=== PATIENT | female | born 1950 | race Caucasian/White ===

== ENCOUNTER 2018-04-05 05:20 | Inpatient (IN) | payer MEDICARE, OTHER ==
[~2018-04-05] VITALS: Ht 165.1 cm; Wt 61.2 kg
[2018-04-05 06:11] LABS: CALC OSMOLALITY 280 mosm/kg (275-300); CALCIUM 9.1 mg/dL (8.5-10.1); CARBON DIOXIDE 29.2 mmol/L (21.0-32.0); CHLORIDE - SERUM 104 mmol/L (98-107); CREATININE - SERUM 0.7 mg/dL (0.6-1.3); GLUCOSE 118 mg/dL (74-106); POTASSIUM - SERUM 3.9 mmol/L (3.5-5.1); SODIUM 141 mmol/L (136-145); UREA NITROGEN 10 mg/dL (7-18); eGFR NON AFRICAN AMERICAN 88 mL/min (90-120)
[2018-04-05 06:15] LABS: BASOPHILS 1.4 % (0-2); EOSINOPHILS 9.7 % (0-7); HEMATOCRIT 42.2 % (36.0-48.0); HEMOGLOBIN 14.1 g/dL (12-16); IMMATURE GRANULOCYTES 0.2 % (0-5); LYMPHOCYTES 32.5 % (15-50); MCH 32.9 pg (26.0-34.0); MCHC 33.4 g/dL (31.0-37.0); MCV 98.6 fL (80.0-100.0); MEAN PLATELET VOLUME 9.2 fL (7.4-10.4); MONOCYTES 8.5 % (2-11); NEUTROPHILS 47.7 % (40-80); PLATELET COUNT 255 10x3/uL (130-400); RBC 4.28 10x6/uL (4.00-5.40); RDW 13.9 % (11.5-14.5); WBC 4.2 10x3/uL (4.8-10.8)
[2018-04-05 06:34] LABS: INR 0.99 (0.85-1.17)
[2018-04-05] MEDS ORDERED: BREO ELLIPTA 21 EACH (06:36)
[2018-04-05] MEDS ORDERED: VENTOLIN HFA18 GM INH (06:36)
[2018-04-05] MEDS ORDERED: PEPCID20 MG PO (06:37)
[2018-04-05 06:45] VITALS: BP 110/63; BMI 22.5
[2018-04-05 16:24] VITALS: BP 110/63; BMI 22.5
[2018-04-05 22:40] VITALS: BP 104/55
[2018-04-06] VITALS (7 sets, daily range): BP systolic 88–124; BP diastolic 51–81; Ht 165.1 cm; Wt 61.2 kg
[2018-04-07 04:00] VITALS: BP 101/63
[2018-04-07 07:44] VITALS: BP 108/54
[2018-04-07 12:20] VITALS: BP 95/53
[2018-04-07 15:43] VITALS: BP 102/57
[2018-04-07 20:00] VITALS: BP 91/56
[2018-04-08] VITALS: BP 94/47
[2018-04-08 04:00] VITALS: BP 117/64
[2018-04-08 06:27] LABS: BASOPHILS 0 % (0-2); EOSINOPHILS 0 % (0-7); HEMATOCRIT 41.1 % (36.0-48.0); HEMOGLOBIN 13.8 g/dL (12-16); IMMATURE GRANULOCYTES 0.2 % (0-5); LYMPHOCYTES 8.2 % (15-50); MCHC 33.6 g/dL (31.0-37.0); MCV 98.3 fL (80.0-100.0); MEAN PLATELET VOLUME 9.1 fL (7.4-10.4); MONOCYTES 0.7 % (2-11); NEUTROPHILS 90.9 % (40-80); PLATELET COUNT 251 10x3/uL (130-400); RBC 4.18 10x6/uL (4.00-5.40); RDW 13.5 % (11.5-14.5); WBC 5.6 10x3/uL (4.8-10.8)
[2018-04-08 06:43] LABS: ALBUMIN 3.5 g/dL (3.4-5.0); ALKALINE PHOSPHATASE 107 U/L (46-116); ALT (SGPT) 25 U/L (10-68); BILIRUBIN - TOTAL 0.18 mg/dL (0.2-1.3); CALC OSMOLALITY 283 mosm/kg (275-300); CALCIUM 8.9 mg/dL (8.5-10.1); CARBON DIOXIDE 30.1 mmol/L (21.0-32.0); CHLORIDE - SERUM 103 mmol/L (98-107); CREATININE - SERUM 0.7 mg/dL (0.6-1.3); GLUCOSE 134 mg/dL (74-106); MAGNESIUM - SERUM 2.3 mg/dL (1.8-2.4); PHOSPHOROUS 5.2 mg/dL (2.5-4.9); POTASSIUM - SERUM 4.7 mmol/L (3.5-5.1); PROTEIN - SERUM 6.8 g/dL (6.4-8.2); SODIUM 142 mmol/L (136-145); UREA NITROGEN 11 mg/dL (7-18); eGFR NON AFRICAN AMERICAN 88 mL/min (90-120)
[2018-04-08 09:35] VITALS: BP 101/53
[2018-04-08 16:07] VITALS: BP 107/50
[2018-04-08 19:40] VITALS: BP 107/62
[2018-04-08 23:21] VITALS: BP 95/45
[2018-04-09 03:57] VITALS: BP 101/42
[2018-04-09 08:23] LABS: IMMUNOGLOBULIN A 124 mg/dL (87-352); IMMUNOGLOBULIN G 751 mg/dL (700-1600)
[2018-04-09] MEDS ORDERED: TESSALON PERLE100 MG PO (12:21)
[2018-04-09] MEDS ORDERED: MUCINEX600 MG PO (12:22)
[2018-04-09] MEDS ORDERED: BREO ELLIPTA 21 EACH (12:22)
[2018-04-09] MEDS ORDERED: OMNICEF300 MG PO (12:24)
[2018-04-09] MEDS ORDERED: SINGULAIR10 MG PO (12:24)
[2018-04-09] MEDS ORDERED: DALIRESP500 MCG PO (12:26)
[2018-04-09] MEDS ORDERED: PREDNISONE20 MG PO (12:32)
[2018-04-09] MEDS ORDERED: OMEPRAZOLE40 MG PO (12:35)
[2018-04-09 12:36] VITALS: BP 108/51
[2018-04-09] MEDS ORDERED: IPRAT-ALBUT 0.5-3 ML UPD ×2 (13:35→13:36)
[2018-04-12 08:24] LABS: IMMUNOGLOBULIN E 23 IU/mL (0-100)
== END 2018-04-09 13:56 | disposition home or self-care (01) | DRG 199 ==
LOC: D.SP 05:20 → D.MS 15:57 → D.SP 15:58 → D.MS 04-09 13:56
PROVIDERS: Internal Medicine Pulmonary Disease; Specialist
PROC: 0W9930Z Drainage of Right Pleural Cavity with Drainage Device, Percutaneous Approach (ICD-10-PCS; 2018-04-05)
PROC: 0BBK3ZX Excision of Right Lung, Percutaneous Approach, Diagnostic (ICD-10-PCS; principal; 2018-04-05 08:00)
DX: J95.811 Postprocedural pneumothorax (principal); J96.01 Acute respiratory failure with hypoxia; J96.02 Acute respiratory failure with hypercapnia; J18.1 Lobar pneumonia, unspecified organism; J44.1 Chronic obstructive pulmonary disease with (acute) exacerbation; J44.0 Chronic obstructive pulmonary disease with (acute) lower respiratory infection; Y83.8 Other surgical procedures as the cause of abnormal reaction of the patient, or of later complication, without mention of misadventure at the time of the procedure; R91.8 Other nonspecific abnormal finding of lung field; J20.9 Acute bronchitis, unspecified; F17.200 Nicotine dependence, unspecified, uncomplicated; K21.9 Gastro-esophageal reflux disease without esophagitis; J30.9 Allergic rhinitis, unspecified

== ENCOUNTER → 2018-05-31 13:31 | Outpatient (CLI) | payer MEDICARE, OTHER ==
[2018-04-06 10:49] VITALS: BMI 22.4
[~2018-05-31 13:31] MED LIST: BREO ELLIPTA 21 EACH; DALIRESP500 MCG PO; IPRAT-ALBUT 0.5-3 ML UPD; MUCINEX600 MG PO; OMEPRAZOLE40 MG PO; OMNICEF300 MG PO; PEPCID20 MG PO; PREDNISONE20 MG PO; SINGULAIR10 MG PO; TESSALON PERLE100 MG PO; VENTOLIN HFA18 GM INH
== END | disposition home or self-care (01) ==
LOC: D.RT 13:31
DX: R91.8 Other nonspecific abnormal finding of lung field (principal)

== ENCOUNTER 2018-06-21 13:41 | Inpatient (IN) | payer MEDICARE, OTHER ==
[~2018-06-21] VITALS: Ht 165.1 cm; Wt 61.2 kg
--- NOTE | ~2018-06-21 | CN ---
PATIENT NAME:MADAI JONES MEDICAL RECORD: [id number] : 50 LOCATION:D.M3 D.1211 ADMIT DATE: 06/22/18 ACCOUNT: [id number] CONSULTING PHYSICIAN: SPEEDY BATEMAN MD REFERRING PHYSICIAN: DEANNA KWOK MD DATE OF CONSULTATION: 06/22/2018 CONSULT REQUESTING PHYSICIAN: Dr. Kwok. REASON FOR CONSULTATION: Acute exacerbation of chronic obstructive pulmonary disease. HISTORY OF PRESENT ILLNESS: Ms. Jones is a 67-year-old female who was complaining of worsening shortness of breath for the last 10 days. She was seen in Dr. Casey's office 2 weeks ago and doing well and she has been scheduled for a CT scan and possible PET scan for followup of pulmonary nodule. According to the patient, she does not have any fever and chill, no night sweats. She has cough without much sputum production. She has shortness of breath with exertion. She hears herself wheezing. Denies any recent cold or flu. REVIEW OF SYSTEMS: HEENT: No sinus congestion. RESPIRATORY: As in history of present illness. CARDIOVASCULAR: No chest pain, no palpitation. GASTROINTESTINAL: No nausea, vomiting. No diarrhea. GENITOURINARY: Negative. Other review of systems is negative. PAST MEDICAL HISTORY: 1. COPD. 2. Mass, right upper lobe. The biopsy was negative. On the present CT scan, it has been resolved. 3. Anxiety, depression. 4. Gastroesophageal reflux disease. 5. Pneumonia 4 months ago. PAST SURGICAL HISTORY: She has surgery on elbow and hand. ALLERGIES: SHE IS ALLERGIC TO CODEINE AND MORPHINE. MEDICATIONS: On Revisu is reviewed. PERSONAL AND SOCIAL HISTORY: The patient is an ex-smoker. She is a nondrinker. FAMILY HISTORY: Significant for cancer. Her parent has cancer. PHYSICAL EXAMINATION: GENERAL: Now, the patient is lying comfortably in bed. She is not in acute distress. VITAL SIGNS: The blood pressure is 141/70, pulse is 90, respiration 20, temperature 98.4, SpO2 is 96% on 2 liters nasal cannula. HEENT: Conjunctivae are pink. Sclerae nonicteric. NECK: The neck is supple. No JVD. LYMPHATIC SYSTEM: There is no cervical lymphadenopathy. CHEST: There is prolonged expiration with wheezing, no crackles. CONSULT REPORT [id number] MADAI JONES HEART: Rhythm regular, normal sound, no murmur. ABDOMEN: The abdomen is soft, bowel sounds present. No hepatosplenomegaly. RECTAL: Deferred. EXTREMITIES: No cyanosis, no clubbing. There is no pedal edema. CENTRAL NERVOUS SYSTEM: The patient is awake and alert. There are no obvious cranial nerve abnormality. The gait was not tested. LABORATORY DATA: The D-dimer is less than 0.27. CBC: The WBC is 3.7, hemoglobin 13.9, hematocrit is 41.2, the platelet count is 265. Chemistry: Sodium is 138, potassium is 3.9, BUN is 11, creatinine 0.7. Liver enzymes within normal range. IMPRESSION: 1. Acute hypoxic respiratory failure, would be less likely pulmonary thromboembolism with negative D-dimer. 2. Acute exacerbation of chronic obstructive pulmonary disease. 3. Pulmonary nodule, left lower lobe, 7 mm. Comparing to the CT scan of the chest in February 2018, the nodule has unchanged in size. 4. Tracheobronchitis. 5. Anxiety. 6. Ex-smoker. 7. Leukopenia, the etiology is not clear. RECOMMENDATION: 1. Continue albuterol, ipratropium nebulizer. 2. Brovana, budesonide nebulizer. 3. Daliresp 250 mcg daily, Singulair 10 mg daily, Mucinex and Tessalon Perles. 4. Consult Dr. Lott. 5. Xanax for anxiety. 6. Followup chest radiograph and labs in the morning. Consult Dr. Lott. Dr. Kwok, thank you for involving me in the care of Ms. Jones. TRANSINT:[id number] Voice Confirmation ID: [id number] DOCUMENT ID: [id number] SPEEDY BATEMAN MD at 1301 CC: [id number] DICTATION DATE: 06/22/18 1452 TURPENTINE DISTILLER: 06/22/18 1620 ADM IN [facility] [id number] [place] [address]
[2018-06-21 15:38] LABS: BASOPHILS 0.8 % (0-2); EOSINOPHILS 6.7 % (0-7); HEMATOCRIT 41.2 % (36.0-48.0); HEMOGLOBIN 13.9 g/dL (12-16); IMMATURE GRANULOCYTES 0.3 % (0-5); LYMPHOCYTES 31.6 % (15-50); MCH 33.8 pg (26.0-34.0); MCHC 33.7 g/dL (31.0-37.0); MCV 100.2 fL (80.0-100.0); MONOCYTES 9.1 % (2-11); NEUTROPHILS 51.5 % (40-80); PLATELET COUNT 265 10x3/uL (130-400); RBC 4.11 10x6/uL (4.00-5.40); RDW 13.4 % (11.5-14.5); WBC 3.7 10x3/uL (4.8-10.8)
[2018-06-21 15:54] LABS: ALBUMIN 3.7 g/dL (3.4-5.0); ALKALINE PHOSPHATASE 89 U/L (46-116); ALT (SGPT) 19 U/L (10-68); BILIRUBIN - TOTAL 0.28 mg/dL (0.2-1.3); CALC OSMOLALITY 275 mosm/kg (275-300); CHLORIDE - SERUM 105 mmol/L (98-107); CREATININE - SERUM 0.7 mg/dL (0.6-1.3); GLUCOSE 87 mg/dL (74-106); POTASSIUM - SERUM 4.1 mmol/L (3.5-5.1); PROTEIN - SERUM 6.9 g/dL (6.4-8.2); SODIUM 140 mmol/L (136-145); UREA NITROGEN 8 mg/dL (7-18); eGFR NON AFRICAN AMERICAN 88 mL/min (90-120)
[2018-06-21 16:07] LABS: CKMB 1.5 U/L (0.0-3.6); CREATINE KINASE 55 UL (21-215); PRO BNP 38 pg/mL (0-125)
[2018-06-21 16:08] LABS: TROPONIN-I < 0.017 ng/mL (0.000-0.060)
[2018-06-21 21:42] VITALS: BP 97/60
[2018-06-21 23:23] VITALS: BP 115/62; BMI 22.5
[2018-06-22] VITALS: BP 115/62
[2018-06-22 04:25] VITALS: BP 98/58
[2018-06-22 04:29] LABS: BASOPHILS 0 % (0-2); EOSINOPHILS 0 % (0-7); HEMOGLOBIN 13.6 g/dL (12-16); LYMPHOCYTES 10.7 % (15-50); MCH 34.5 pg (26.0-34.0); MCHC 34.9 g/dL (31.0-37.0); MEAN PLATELET VOLUME 9.1 fL (7.4-10.4); MONOCYTES 1.4 % (2-11); NEUTROPHILS 87.9 % (40-80); PLATELET COUNT 265 10x3/uL (130-400); RBC 3.94 10x6/uL (4.00-5.40); RDW 13.2 % (11.5-14.5); WBC 2.8 10x3/uL (4.8-10.8)
[2018-06-22 04:40] LABS: CALCIUM 8.5 mg/dL (8.5-10.1); CARBON DIOXIDE 27.5 mmol/L (21.0-32.0); CHLORIDE - SERUM 105 mmol/L (98-107); CREATININE - SERUM 0.7 mg/dL (0.6-1.3); POTASSIUM - SERUM 3.9 mmol/L (3.5-5.1); SODIUM 138 mmol/L (136-145); eGFR NON AFRICAN AMERICAN 88 mL/min (90-120)
[2018-06-22 05:03] LABS: CALC OSMOLALITY 278 mosm/kg (275-300); GLUCOSE 162 mg/dL (74-106); UREA NITROGEN 11 mg/dL (7-18)
[2018-06-22 07:17] VITALS: BP 141/70
[2018-06-22 09:36] VITALS: BMI 22.4
[2018-06-22 11:01] VITALS: BP 112/64
[2018-06-22 15:00] VITALS: BP 137/69
[2018-06-22 16:54] VITALS: Ht 165.1 cm; Wt 61.2 kg
[2018-06-22 19:26] VITALS: BP 109/60
[2018-06-23 05:20] LABS: ALBUMIN 3.2 g/dL (3.4-5.0); ALKALINE PHOSPHATASE 79 U/L (46-116); ALT (SGPT) 22 U/L (10-68); BILIRUBIN - TOTAL 0.07 mg/dL (0.2-1.3); CALC OSMOLALITY 275 mosm/kg (275-300); CALCIUM 8.4 mg/dL (8.5-10.1); CARBON DIOXIDE 28.1 mmol/L (21.0-32.0); CHLORIDE - SERUM 106 mmol/L (98-107); CREATININE - SERUM 0.7 mg/dL (0.6-1.3); GLUCOSE 147 mg/dL (74-106); POTASSIUM - SERUM 4.1 mmol/L (3.5-5.1); PROTEIN - SERUM 6.3 g/dL (6.4-8.2); SODIUM 137 mmol/L (136-145); UREA NITROGEN 11 mg/dL (7-18); eGFR NON AFRICAN AMERICAN 88 mL/min (90-120)
[2018-06-23 05:40] LABS: BASOPHILS 0 % (0-2); EOSINOPHILS 0 % (0-7); HEMATOCRIT 38.3 % (36.0-48.0); HEMOGLOBIN 12.6 g/dL (12-16); IMMATURE GRANULOCYTES 0.2 % (0-5); LYMPHOCYTES 4.6 % (15-50); MCH 32.9 pg (26.0-34.0); MCHC 32.9 g/dL (31.0-37.0); MONOCYTES 1.6 % (2-11); NEUTROPHILS 93.6 % (40-80); PLATELET COUNT 260 10x3/uL (130-400); RBC 3.83 10x6/uL (4.00-5.40); RDW 13.7 % (11.5-14.5); WBC 9.5 10x3/uL (4.8-10.8)
[2018-06-23 06:40] VITALS: BP 105/67
[2018-06-23 08:19] VITALS: BP 98/52
[2018-06-23 11:52] VITALS: BP 110/61
[2018-06-23] MEDS ORDERED: BROVANA15 MCG/2 M INH (12:16)
[2018-06-23] MEDS ORDERED: LEVAQUIN750 MG PO (12:17)
[2018-06-23] MEDS ORDERED: STERAPRED DS 1010 MG PO (12:18)
[2018-06-24 14:23] LABS: ANA REFLEX - DIRECT Negative (Negative)
== END 2018-06-23 14:20 | disposition home or self-care (01) | DRG 189 ==
LOC: D.ER 13:41 → D.M3 21:42 → OBSVTIME 21:42 → D.M3 06-22 17:09
PROVIDERS: Family Medicine; Internal Medicine Hematology & Oncology
DX: J96.01 Acute respiratory failure with hypoxia (principal); J44.1 Chronic obstructive pulmonary disease with (acute) exacerbation; J40 Bronchitis, not specified as acute or chronic; D72.819 Decreased white blood cell count, unspecified; R91.1 Solitary pulmonary nodule; K21.9 Gastro-esophageal reflux disease without esophagitis; F32.9 Major depressive disorder, single episode, unspecified; F41.9 Anxiety disorder, unspecified

== ENCOUNTER 2018-09-22 12:11 | Inpatient (IN) | payer MEDICARE, OTHER ==
[~2018-09-22] VITALS: Ht 165.1 cm; Wt 61.2 kg
[~2018-09-22 12:11] MED LIST changes: +BROVANA15 MCG/2 M INH; +LEVAQUIN750 MG PO; +STERAPRED DS 1010 MG PO
[2018-09-22 13:52] LABS: BASOPHILS 0.7 % (0-2); EOSINOPHILS 2.7 % (0-7); HEMATOCRIT 42.4 % (36.0-48.0); HEMOGLOBIN 14.2 g/dL (12-16); IMMATURE GRANULOCYTES 0.2 % (0-5); LYMPHOCYTES 22.6 % (15-50); MCH 33.6 pg (26.0-34.0); MCHC 33.5 g/dL (31.0-37.0); MCV 100.5 fL (80.0-100.0); MEAN PLATELET VOLUME 9.1 fL (7.4-10.4); MONOCYTES 6.1 % (2-11); NEUTROPHILS 67.7 % (40-80); PLATELET COUNT 286 10x3/uL (130-400); RBC 4.22 10x6/uL (4.00-5.40); RDW 13.6 % (11.5-14.5); WBC 5.9 10x3/uL (4.8-10.8)
[2018-09-22 13:54] LABS: ALBUMIN 3.9 g/dL (3.4-5.0); ALKALINE PHOSPHATASE 79 U/L (46-116); ALT (SGPT) 24 U/L (10-68); BILIRUBIN - TOTAL 0.44 mg/dL (0.2-1.3); CALC OSMOLALITY 277 mosm/kg (275-300); CALCIUM 9.3 mg/dL (8.5-10.1); CHLORIDE - SERUM 103 mmol/L (98-107); CREATININE - SERUM 0.7 mg/dL (0.6-1.3); GLUCOSE 94 mg/dL (74-106); PROTEIN - SERUM 7.4 g/dL (6.4-8.2); SODIUM 140 mmol/L (136-145); UREA NITROGEN 11 mg/dL (7-18); eGFR NON AFRICAN AMERICAN 88 mL/min (90-120)
[2018-09-22 13:55] LABS: APTT 23.9 SECONDS (22.8-39.4); INR 0.92 (0.85-1.17); PROTIME 11.9 SECONDS (11.6-15.0)
[2018-09-22 14:10] LABS: CKMB 2.1 U/L (0.0-3.6); CREATINE KINASE 47 UL (21-215); PRO BNP 74 pg/mL (0-125); TROPONIN-I < 0.017 ng/mL (0.000-0.060)
--- NOTE | 2018-09-22 16:17 | NUR ---
[facility] [id number]
--- NOTE | 2018-09-22 19:14 | MORECARE ---
CASE MANAGEMENT DISCHARGE SUMMARY PATIENT: MADAI WARD UNIT: [id number] ADM DATE: 09/22/18 AGE: 67 : 50 SEX: F ROOM/BED: D.[facility] AUTHOR: CHENCHO BURDICK PHYSICIAN: REFERRING PHYSICIAN: SHAYE CONTRERAS MD DATE OF SERVICE: 09/22/18 Discharge Plan Patient Name: MADAI WARD Facility: [facility]:[place] : 1950 Planned Disposition: Anticipated Discharge Date: Discharge Date: Expected LOS: Initial Reviewer: [email or web address] Initial Review Date: 09/22/2018 Generated: 09/22/18 8:14 pm Patient Name: MADAI WARD Page [id number] at 1914 All edits/amendments must be made on the electronic document DICTATION DATE: 09/22/181913 UPSETTER SETTER UP: EVA 09/22/181913 RPT#: [id number] DC DATE: STATUS: ADM IN [facility] [address] [place] [address] END OF REPORT
[2018-09-22 20:15] VITALS: BP 112/47
--- NOTE | 2018-09-22 20:29 | NUR ---
PT ARRIVED TO ROOM 1203 PHARMACY AND MED REC DONE. ADMIT HISTORY COMPLETE. PT ON 2L O2 NC. AAO UP AD TODD. 75ML/HR TO LEFT AC IV. GLASSES AND OTHER BELONGING AT BEDSIDE. PT HAS NO S/S OF DISTRESS. DENIES ANY NEEDS. WILL CPOC
--- NOTE | 2018-09-23 02:20 | NUR ---
NO TELEMETRY AVALIBLE. RADIO MACHINIST INSTRUCTED TO CALL WHEN ONE IS AVALIBLE.
[2018-09-23 03:03] VITALS: BP 112/47; BMI 22.5
--- NOTE | 2018-09-23 04:11 | NUR ---
PT ASLEEP. RESP EVEN AND UNLABORED. BEDLOW AND CALL LIGHT IN REACH. NO S/S OF DISTRESS. WILL CPOC
[2018-09-23 04:16] VITALS: BP 119/81
--- NOTE | 2018-09-23 07:45 | NUR ---
AM ROUNDS COMPLETED. INTRODUCED MYSELF TO PT PRIMARY RN FOR TODAYS SHIFT. PT IS A&O SITTING UP IN BED RESTING QUIETLY. SHIFT ASSESSMENT COMPLETED AND PTS LUNGS ARE CTA NO WHEEZING NOTED COMPARED TO LAST NIGHTS ASSESSMENT. PT HAS A CONSULT THAT WASNT DONE LAST NIGHT SO I DID SEND A PAGE FOR ORDERED. PT IS HOPING TO GO HOME AND STATES SHE IS FEELING BETTER AND ALREADY HAS A F/U WITH IN PLACE. RR NONLABORED WITH NC @2L IN PLACE. CL IN REACH, BED IN LOWEST, SIDE RAILS X2. NO CURRENT NEEDS. WILL CTM.
[2018-09-23 08:34] LABS: BASOPHILS 0 % (0-2); EOSINOPHILS 0 % (0-7); HEMATOCRIT 39.1 % (36.0-48.0); HEMOGLOBIN 12.9 g/dL (12-16); IMMATURE GRANULOCYTES 0.1 % (0-5); LYMPHOCYTES 5.4 % (15-50); MCH 33.1 pg (26.0-34.0); MCV 100.3 fL (80.0-100.0); MEAN PLATELET VOLUME 9.2 fL (7.4-10.4); MONOCYTES 0.9 % (2-11); NEUTROPHILS 93.6 % (40-80); PLATELET COUNT 286 10x3/uL (130-400); RDW 13.6 % (11.5-14.5)
[2018-09-23 08:42] LABS: WBC 8.7 10x3/uL (4.8-10.8)
[2018-09-23 09:05] LABS: ALBUMIN 3.2 g/dL (3.4-5.0); ALKALINE PHOSPHATASE 65 U/L (46-116); ALT (SGPT) 18 U/L (10-68); BILIRUBIN - TOTAL 0.22 mg/dL (0.2-1.3); CALCIUM 8.9 mg/dL (8.5-10.1); CARBON DIOXIDE 25.9 mmol/L (21.0-32.0); CHLORIDE - SERUM 105 mmol/L (98-107); CREATININE - SERUM 0.8 mg/dL (0.6-1.3); POTASSIUM - SERUM 4.2 mmol/L (3.5-5.1); PROTEIN - SERUM 6.4 g/dL (6.4-8.2); SODIUM 142 mmol/L (136-145); eGFR NON AFRICAN AMERICAN 76 mL/min (90-120)
[2018-09-23 09:07] LABS: CALC OSMOLALITY 287 mosm/kg (275-300); GLUCOSE 165 mg/dL (74-106); UREA NITROGEN 14 mg/dL (7-18)
[2018-09-23 09:09] VITALS: BP 134/66
--- NOTE | 2018-09-23 11:18 | NUR ---
WAITING ON SOLU-MEDROL. PAGED PHARMACY AND THEY STATE THEY WILL BRING UP. PT RESTING QUIETLY AND STTATES SHE IS BREATHING GOOD. DENIES ANY CURRENT PAIN OR NEEDS. CL IN REACH. WILL CTM.
[2018-09-23 12:24] VITALS: BMI 22.4
[2018-09-23 14:21] VITALS: BP 108/61
[2018-09-23 16:45] VITALS: BP 102/53
[2018-09-23 17:07] VITALS: Ht 165.1 cm; Wt 61.2 kg
--- NOTE | 2018-09-23 19:05 | NUR ---
PT RESTING IN BED. PT DENIES ANY NEEDS. NAME AND DATE PLACED ON BOARD., WILL CPOC
[2018-09-23 20:19] LABS: % SATURATION 24 % (15-55); IRON 51 ug/dl (35-150); TOTAL IRON BIND CAPACITY 210 ug/dl (260-445); UNSAT IRON BIND CAPACITY 159 ug/dl (150-375)
--- NOTE | 2018-09-23 20:45 | NUR ---
PT RESTING IN BED. NEW IV PLACED IN RIGHT WRIST 20G PIV, REMOVED LEFT AC IV INDURATION AND INFLATRATION. PT WILL CALL FOR ASSIST WHEN NEEDED. WILL CPOC
--- NOTE | 2018-09-24 00:42 | NUR ---
UNABLE TO PUT PT ON TELEMETRY. NO TELEMETRY AVALIBLE. PIPELINES SUPERINTENDENT VERBALIZED THAT ONCE ONE IS AVALIBLE SHE WILL LET NURSE KNOW.
--- NOTE | 2018-09-24 00:46 | NUR ---
PT REFUSED TO BE HOOKED TO FLUIDS. STATES SHE DOESNT NEED IT SHE IS HERE FOR RESP REASONS AND DRINKS FINE.
--- NOTE | 2018-09-24 03:38 | NUR ---
PT ASKING TO GET INTO A SHOWER. ASSISTED SHOWER BY WRAPPING IV, PT SHOWERED SELF. PT WALKING HALLWAY WALKED TO NURSE STATION FOR COFFEE. NO S/S OF DISTRESS. DENIES ANY NEEDS. WILL CPOC
[2018-09-24 05:28] VITALS: BP 102/60
--- NOTE | 2018-09-24 06:22 | NUR ---
PATIENT UP IN BED, MORNING MEDS GIVEN W/O DIFFICULTY. IV STILL PATENT, NO REDNESS OR INFILTRATION. PATIENT PLEASANT AND IN GOOD SPIRITS.
[2018-09-24 08:05] VITALS: BP 104/57
--- NOTE | 2018-09-24 08:51 | NUR ---
PT ALERT X 4. BREATH SOUNDS CLEAR BILAT, 2L O2 PER NC. IV TO RIGHT WRIST, SALINE LOCKED. ASKING ABOUT GI CONSULT, SPOKE WITH GIO JULIEN ABOUT THIS. BREAKFAST IN ROOM. BED LOW, CALL LIGHT IN REACH, NO OTHER NEEDS AT THIS TIME.
[2018-09-24 11:32] VITALS: BP 146/98
[2018-09-24 15:43] VITALS: BP 102/55
--- NOTE | 2018-09-24 19:50 | NUR ---
PATIENT RESTING IN BED AND DENIES NEEDS AT THIS TIME. BED IN LOWEST POSITION AND CALL LIGHT WITHIN REACH. ENCOURAGED THE PATIENT TO CALL IF SHE HAS NEEDS.
[2018-09-24 20:00] VITALS: BP 101/57
--- NOTE | 2018-09-24 22:41 | NUR ---
COVERED PATIENT'S IV AND GAVE HER A CLEAN GOWN TO TAKE A SHOWER. PATIENT DENIES OTHER NEEDS AT THIS TIME.
--- NOTE | 2018-09-24 23:20 | NUR ---
PATIENT RESTING IN BED WITH NO S/S OF DISTRESS AND DENIES NEEDS AT THIS TIME. BED IN LOWEST POSITION AND CALL LIGHT WITHIN REACH. ENCOURAGED THE PATIENT TO CALL IF SHE HAS NEEDS.
[2018-09-24 23:42] VITALS: BP 104/64
[2018-09-25 04:00] VITALS: BP 110/56
[2018-09-25 07:34] LABS: BASOPHILS 0 % (0-2); EOSINOPHILS 0 % (0-7); HEMATOCRIT 36.8 % (36.0-48.0); HEMOGLOBIN 12.1 g/dL (12-16); IMMATURE GRANULOCYTES 0.3 % (0-5); MCH 33.2 pg (26.0-34.0); MCHC 32.9 g/dL (31.0-37.0); MCV 101.1 fL (80.0-100.0); MEAN PLATELET VOLUME 8.9 fL (7.4-10.4); MONOCYTES 3.2 % (2-11); NEUTROPHILS 92.5 % (40-80); PLATELET COUNT 259 10x3/uL (130-400); RBC 3.64 10x6/uL (4.00-5.40); RDW 14.1 % (11.5-14.5)
[2018-09-25 07:37] LABS: WBC 16.4 10x3/uL (4.8-10.8)
[2018-09-25 07:47] LABS: PROTIME 12.7 SECONDS (11.6-15.0)
[2018-09-25 08:27] LABS: CALC OSMOLALITY 281 mosm/kg (275-300); CALCIUM 8.4 mg/dL (8.5-10.1); CARBON DIOXIDE 24.4 mmol/L (21.0-32.0); CHLORIDE - SERUM 105 mmol/L (98-107); CREATININE - SERUM 0.7 mg/dL (0.6-1.3); GLUCOSE 126 mg/dL (74-106); POTASSIUM - SERUM 4.2 mmol/L (3.5-5.1); SODIUM 140 mmol/L (136-145); UREA NITROGEN 14 mg/dL (7-18); eGFR NON AFRICAN AMERICAN 88 mL/min (90-120)
[2018-09-25] MEDS ORDERED: ZITHROMAX500 MG PO (14:03)
[2018-09-25] MEDS ORDERED: BENZONATATE200 MG PO (14:04)
[2018-09-25] MEDS ORDERED: SINGULAIR10 MG PO (14:04)
[2018-09-25] MEDS ORDERED: OMNICEF300 MG PO (14:04)
[2018-09-25] MEDS ORDERED: DALIRESP500 MCG PO (14:05)
[2018-09-25] MEDS ORDERED: PREDNISONE10 MG PO (14:06)
--- NOTE | 2018-09-25 15:30 | NUR ---
IV TO LEFT HAND DC'D, TIP INTACT. DISCHARGE PAPERWORK SIGNED, ALL QUESTIONS ANSWERED.
[2018-09-26 11:14] LABS: FOLATE (FOLIC ACID) - SERUM 6.7 ng/mL (>3.0)
== END 2018-09-25 15:57 | disposition home or self-care (01) | DRG 189 ==
LOC: D.ER 12:11 → D.EDHOLD 17:31 → D.M3 17:31
PROVIDERS: Family Medicine; Internal Medicine Gastroenterology; ADMIT Internal Medicine Nephrology
PROC: 0DB68ZX Excision of Stomach, Via Natural or Artificial Opening Endoscopic, Diagnostic (ICD-10-PCS; 2018-09-25)
PROC: 0DB58ZX Excision of Esophagus, Via Natural or Artificial Opening Endoscopic, Diagnostic (ICD-10-PCS; 2018-09-25)
PROC: 0D758ZZ Dilation of Esophagus, Via Natural or Artificial Opening Endoscopic (ICD-10-PCS; 2018-09-25)
PROC: 0DB98ZX Excision of Duodenum, Via Natural or Artificial Opening Endoscopic, Diagnostic (ICD-10-PCS; principal; 2018-09-25 07:57)
DX: J96.21 Acute and chronic respiratory failure with hypoxia (principal); K29.01 Acute gastritis with bleeding; J44.1 Chronic obstructive pulmonary disease with (acute) exacerbation; J44.0 Chronic obstructive pulmonary disease with (acute) lower respiratory infection; K21.9 Gastro-esophageal reflux disease without esophagitis; M41.9 Scoliosis, unspecified; K22.2 Esophageal obstruction; J20.9 Acute bronchitis, unspecified; J30.9 Allergic rhinitis, unspecified; D75.89 Other specified diseases of blood and blood-forming organs; R91.1 Solitary pulmonary nodule; K44.9 Diaphragmatic hernia without obstruction or gangrene; K20.9 Esophagitis, unspecified; K29.80 Duodenitis without bleeding; Z87.891 Personal history of nicotine dependence

== ENCOUNTER 2019-02-20 12:59 | Inpatient (IN) | payer MEDICARE, OTHER ==
[~2019-02-20 12:59] MED LIST changes: +BENZONATATE200 MG PO; +PREDNISONE10 MG PO; +ZITHROMAX500 MG PO
[2019-02-20] MEDS ORDERED: [UNRECOGNIZED DRUG - OTHER] (13:12)
[2019-02-20 13:53] LABS: BASOPHILS 0.9 % (0-2); EOSINOPHILS 7.3 % (0-7); HEMATOCRIT 39.6 % (36.0-48.0); HEMOGLOBIN 13.3 g/dL (12-16); LYMPHOCYTES 34.4 % (15-50); MCH 33.3 pg (26.0-34.0); MCHC 33.6 g/dL (31.0-37.0); MCV 99.2 fL (80.0-100.0); MEAN PLATELET VOLUME 8.5 fL (7.4-10.4); NEUTROPHILS 49.4 % (40-80); PLATELET COUNT 243 10x3/uL (130-400); RBC 3.99 10x6/uL (4.00-5.40); RDW 13.7 % (11.5-14.5); WBC 4.4 10x3/uL (4.8-10.8)
[2019-02-20 14:01] LABS: INR 0.99 (0.85-1.17); PROTIME 12.6 SECONDS (11.6-15.0)
[2019-02-20 14:03] LABS: ALBUMIN 3.7 g/dL (3.4-5.0); ALKALINE PHOSPHATASE 80 U/L (46-116); ALT (SGPT) 19 U/L (10-68); BILIRUBIN - TOTAL 0.36 mg/dL (0.2-1.3); CALC OSMOLALITY 278 mosm/kg (275-300); CALCIUM 8.6 mg/dL (8.5-10.1); CARBON DIOXIDE 28.7 mmol/L (21.0-32.0); CHLORIDE - SERUM 105 mmol/L (98-107); CREATININE - SERUM 0.6 mg/dL (0.6-1.3); GLUCOSE 82 mg/dL (74-106); PROTEIN - SERUM 6.9 g/dL (6.4-8.2); SODIUM 141 mmol/L (136-145); UREA NITROGEN 11 mg/dL (7-18); eGFR NON AFRICAN AMERICAN > 90 mL/min (90-120)
[2019-02-20 14:15] LABS: CKMB 1.3 U/L (0.0-3.6); CREATINE KINASE 40 UL (21-215); PRO BNP 18 pg/mL (0-125); TROPONIN-I < 0.017 ng/mL (0.000-0.060)
[2019-02-20 18:09] VITALS: BP 115/69; BMI 22.5
--- NOTE | 2019-02-20 18:16 | NUR ---
ASSESSMENT PER FLOW SHEET. PT IS HAVING SOME SHORTNESS OF BREATH WITH SATS 89-90% ON ROOM AIR. PT PLACED ON 2 LITERS PER NASAL CANULA,SATS 94-95%.ORIENTATION TO ROOM.CALL LIGHT IN REACH.
[2019-02-20 21:04] VITALS: BP 110/51
--- NOTE | 2019-02-20 23:01 | NUR ---
I have reviewed this patient and I concur with the Shift Assessment completed by the Licensed Practical Nurse today this shift.
[2019-02-21] VITALS: BP 105/66
[2019-02-21 04:30] VITALS: BP 103/63
[2019-02-21 07:00] VITALS: BP 101/60
--- NOTE | 2019-02-21 08:01 | NUR ---
LYING IN BED,WITHOUT DISTRESS.CALL LIGHT IN REACH
[2019-02-21 11:00] VITALS: BP 106/62
[2019-02-21 11:14] LABS: BASOPHILS 0 % (0-2); EOSINOPHILS 0 % (0-7); HEMATOCRIT 37.2 % (36.0-48.0); HEMOGLOBIN 12.4 g/dL (12-16); IMMATURE GRANULOCYTES 0.2 % (0-5); LYMPHOCYTES 4.7 % (15-50); MCH 32.9 pg (26.0-34.0); MCHC 33.3 g/dL (31.0-37.0); MCV 98.7 fL (80.0-100.0); MEAN PLATELET VOLUME 8.9 fL (7.4-10.4); MONOCYTES 2.6 % (2-11); NEUTROPHILS 92.5 % (40-80); PLATELET COUNT 246 10x3/uL (130-400); RBC 3.77 10x6/uL (4.00-5.40); RDW 13.6 % (11.5-14.5)
[2019-02-21 11:19] LABS: WBC 9.2 10x3/uL (4.8-10.8)
[2019-02-21 11:32] LABS: CALCIUM 8.8 mg/dL (8.5-10.1); CARBON DIOXIDE 26.9 mmol/L (21.0-32.0); CHLORIDE - SERUM 105 mmol/L (98-107); CREATININE - SERUM 0.7 mg/dL (0.6-1.3); POTASSIUM - SERUM 3.7 mmol/L (3.5-5.1); SODIUM 140 mmol/L (136-145); eGFR NON AFRICAN AMERICAN 88 mL/min (90-120)
[2019-02-21 11:34] LABS: CALC OSMOLALITY 284 mosm/kg (275-300); GLUCOSE 191 mg/dL (74-106); UREA NITROGEN 16 mg/dL (7-18)
--- NOTE | 2019-02-21 16:20 | MORECARE ---
CASE MANAGEMENT DISCHARGE SUMMARY PATIENT: MADAI WARD UNIT: [id number] ADM DATE: 02/20/19 AGE: 68 : 50 SEX: F ROOM/BED: D.2220 AUTHOR: GENNARODOC PHYSICIAN: REFERRING PHYSICIAN: SHAYE CONTRERAS MD DATE OF SERVICE: 02/21/19 Discharge Plan Patient Name: MADAI WARD Facility: [facility]:[place] : 1950 Planned Disposition: Home or Self Care Anticipated Discharge Date: Discharge Date: Expected LOS: Initial Reviewer: [email or web address] Initial Review Date: 02/20/2019 Generated: 02/21/19 5:20 pm Comments DCP- Discharge Planning Updated by [email or web address]: Francesca Brito on 02/21/19 3:[address] Patient Name: MADAI WARD Admission Status: ER Accout number: [id number] Admission Date: 02-20-2019 : 1950 Admission Diagnosis: Attending: SHAYE CONTRERAS Current LOS: 1 Anticipated DC Date: Planned Disposition: Home or Self Care Primary Insurance: MEDICARE A & B Discharge Planning Comments: CM met with patient to complete initial dc planning assessment. CM educated patient on the CM role and verbal consent given by patient to complete assessment. Patient lives at home where she is independent with her care. She lives alone . At discharge patient plans to return home and feels this is a safe discharge. Her brother will be her dinkey driver home. CM discussed availability of home health, rehab services, and medical equipment. She does not want home health. She has home O2 and a nebulizer from [facility] and would like to see if she could have a portable Nebulizer and O2. Will get walk test closer to DC. JOSE ALBERTO signed ad placed in chart. Patient denied known discharge needs at this time. CM will continue to follow and will assist as needed with dc plans/needs. Dining Manager: Francesca Brito DCPIA - Discharge Planning Initial Assessment Updated by [email or web address]: Francesca Brito on 02/21/19 4:17 pm * Is the patient Alert and Oriented? Yes * How many steps to enter\exit or inside your home? * PCP [facility] ([place]) * Pharmacy [facility] * Preadmission Environment Home Alone * ADLs Independent * Equipment Bedside Commode Nebulizer Oxygen * List name and contact numbers for known caregivers / representatives who currently or will assist patient after discharge: Alonso [phone] * Verbal permission to speak to the caregivers and representatives has been obtained from the patient. N/A * Community resources currently utilized None * Additional services required to return to the preadmission environment? No * Can the patient safely return to the preadmission environment? Yes * Has this patient been hospitalized within the prior 30 days at any hospital? No Patient Name: MADAI WARD Page [id number] at 1620 All edits/amendments must be made on the electronic document DICTATION DATE: 02/21/191618 LOOM SETTER FOURDRINIER: EVA 02/21/191618 RPT#: [id number] DC DATE: STATUS: ADM IN [facility] [address] [place] [address] END OF REPORT
[2019-02-21 17:11] VITALS: BP 99/57
[2019-02-21 21:28] VITALS: BP 109/60
[2019-02-22 02:13] VITALS: BP 105/64
--- NOTE | 2019-02-22 04:14 | NUR ---
I have reviewed this patient and I concur with the Shift Assessment completed by the Licensed Practical Nurse today this shift.
[2019-02-22 04:50] VITALS: BP 100/51
[2019-02-22 06:42] LABS: BASOPHILS 0 % (0-2); EOSINOPHILS 0 % (0-7); HEMATOCRIT 37.1 % (36.0-48.0); HEMOGLOBIN 12.3 g/dL (12-16); IMMATURE GRANULOCYTES 0.3 % (0-5); LYMPHOCYTES 3.1 % (15-50); MCH 33.2 pg (26.0-34.0); MCHC 33.2 g/dL (31.0-37.0); MEAN PLATELET VOLUME 9.1 fL (7.4-10.4); NEUTROPHILS 94.6 % (40-80); PLATELET COUNT 258 10x3/uL (130-400); RBC 3.71 10x6/uL (4.00-5.40)
[2019-02-22 06:57] LABS: CALC OSMOLALITY 282 mosm/kg (275-300); CALCIUM 8.8 mg/dL (8.5-10.1); CARBON DIOXIDE 25.4 mmol/L (21.0-32.0); CHLORIDE - SERUM 106 mmol/L (98-107); CREATININE - SERUM 0.6 mg/dL (0.6-1.3); MAGNESIUM - SERUM 2.3 mg/dL (1.8-2.4); POTASSIUM - SERUM 3.9 mmol/L (3.5-5.1); SODIUM 141 mmol/L (136-145); UREA NITROGEN 16 mg/dL (7-18); eGFR NON AFRICAN AMERICAN > 90 mL/min (90-120)
[2019-02-22 07:00] LABS: GLUCOSE 124 mg/dL (74-106)
[2019-02-22 07:11] LABS: WBC 14.6 10x3/uL (4.8-10.8)
--- NOTE | 2019-02-22 07:30 | NUR ---
PT SITTING UP ON SOB, NO ACUTE DISTRESS NOTED AT THIS TIME. PT DOES VOICE DYSPNEA UPON ACTIVITY. SALINE LOC TO LEFT HAND INTACT AND PATENT, SITE WITHOUT REDNESS OR EDEMA. DENIES PAIN AT THIS TIME. CL WITHIN REACH. ENCOURAGED TO CALL WITH NEEDS. CONTINUE POC
[2019-02-22 08:54] VITALS: BP 103/63
[2019-02-22 12:43] VITALS: BP 111/42
[2019-02-22] MEDS ORDERED: LEVOFLOXACIN500 MG PO (16:16)
[2019-02-22] MEDS ORDERED: PREDNISONE10 MG PO (16:17)
[2019-02-22 17:05] VITALS: BP 106/59
--- NOTE | 2019-03-01 12:37 | MORECARE ---
CASE MANAGEMENT DISCHARGE SUMMARY PATIENT: MADAI WARD UNIT: [id number] ADM DATE: 02/20/19 AGE: 68 : 50 SEX: F ROOM/BED: D.2220 AUTHOR: GENNARO,DOC PHYSICIAN: REFERRING PHYSICIAN: SHAYE CONTRERAS MD DATE OF SERVICE: 03/01/19 Discharge Plan Patient Name: MADAI WARD Facility: [facility]:[place] : 1950 Planned Disposition: Home or Self Care Anticipated Discharge Date: Discharge Date: 02/22/2019 Expected LOS: 0 Initial Reviewer: [email or web address] Initial Review Date: 02/20/2019 Generated: 03/01/19 1:36 pm Comments DCP- Discharge Planning Updated by [email or web address]: Francesca Brito on 02/21/19 3:[address] Patient Name: MADAI WARD Admission Status: ER Accout number: [id number] Admission Date: 02-20-2019 : 1950 Admission Diagnosis: Attending: SHAYE CONTRERAS Current LOS: 1 Anticipated DC Date: Planned Disposition: Home or Self Care Primary Insurance: MEDICARE A & B Discharge Planning Comments: CM met with patient to complete initial dc planning assessment. CM educated patient on the CM role and verbal consent given by patient to complete assessment. Patient lives at home where she is independent with her care. She lives alone . At discharge patient plans to return home and feels this is a safe discharge. Her brother will be her hazardous materials driver home. CM discussed availability of home health, rehab services, and medical equipment. She does not want home health. She has home O2 and a nebulizer from [facility] and would like to see if she could have a portable Nebulizer and O2. Will get walk test closer to DC. JOSE ALBERTO signed ad placed in chart. Patient denied known discharge needs at this time. CM will continue to follow and will assist as needed with dc plans/needs. Chief Executive Officer: Francesca Brito DCPIA - Discharge Planning Initial Assessment Updated by [email or web address]: Francesca Brito on 02/21/19 4:17 pm * Is the patient Alert and Oriented? Yes * How many steps to enter\exit or inside your home? * PCP [facility] ([place]) * Pharmacy [facility] * Preadmission Environment Home Alone * ADLs Independent * Equipment Bedside Commode Nebulizer Oxygen * List name and contact numbers for known caregivers / representatives who currently or will assist patient after discharge: Alonso [phone] * Verbal permission to speak to the caregivers and representatives has been obtained from the patient. N/A * Community resources currently utilized None * Additional services required to return to the preadmission environment? No * Can the patient safely return to the preadmission environment? Yes * Has this patient been hospitalized within the prior 30 days at any hospital? No Last DP export: 02/21/19 3:20 pm Patient Name: MADAI WARD Page [phone] at 1237 All edits/amendments must be made on the electronic document DICTATION DATE: 03/01/19 1236 AGRICULTURAL EQUIPMENT SALES MANAGER: EVA 03/01/19 1236 RPT#: [id number] DC DATE:02/22/19 STATUS: DIS IN [facility] [address] [place] [address] END OF REPORT
== END 2019-02-22 17:56 | disposition home or self-care (01) | DRG 189 ==
LOC: D.ER 12:59 → D.MS 16:45
PROVIDERS: Emergency Medicine; Family Medicine; ADMIT Internal Medicine Nephrology; ATTEND Internal Medicine Nephrology
DX: J96.21 Acute and chronic respiratory failure with hypoxia (principal); J44.1 Chronic obstructive pulmonary disease with (acute) exacerbation; F17.213 Nicotine dependence, cigarettes, with withdrawal; J44.0 Chronic obstructive pulmonary disease with (acute) lower respiratory infection; J20.9 Acute bronchitis, unspecified; K21.9 Gastro-esophageal reflux disease without esophagitis; J30.9 Allergic rhinitis, unspecified; R91.1 Solitary pulmonary nodule; M41.9 Scoliosis, unspecified

== ENCOUNTER → 2019-03-03 10:28 | Outpatient (CLI) | payer MEDICARE, OTHER ==
[2019-02-20 18:09] VITALS: BMI 22.5
[~2019-03-03 10:28] MED LIST changes: +LEVOFLOXACIN500 MG PO; +[UNRECOGNIZED DRUG - OTHER]
== END | disposition home or self-care (01) ==
LOC: D.CT 10:28
PROVIDERS: ATTEND Specialist
DX: R91.8 Other nonspecific abnormal finding of lung field (principal)

== ENCOUNTER 2019-05-15 11:07 | Inpatient (IN) | payer MEDICARE, OTHER ==
[~2019-05-15] VITALS: Ht 165.1 cm; Wt 61.2 kg
--- NOTE | ~2019-05-15 | HEMODYNAMI ---
PATIENT:MADAI WARD MEDICAL RECORD: [id number] : 50 LOCATION:D. D.2107 [facility]# [id number] ADMISSION DATE: 05/15/19 Generatedon:05/16/201915:17 Patient name: MADAI WARD Patient #: [id number] : 1950 Date of study: 05/16/2019 Page: Of Hemodynamic Procedure Report Patient Data Patient Demographics Procedure consent was obtained First Name: MADAI Gender: Female Last Name: ED : 1950 Middle Initial: MARY Age: 68 year(s) Patient #: [id number] Race: SSN: [id number] Additional ID: [id number] Contact details [address]: [address] [place] [address] State: [place] City: [place] Zip code: [address] Past Medical History Allergies Allergen Reaction Date Comments Reported Other allergy 05/16/2019 NSAIDS, Morphine, codeine. Admission Admission Data Admission Date: 05/15/2019 Admission Time: 15:18 Arrival Date: 05/16/2019 Arrival Time: 0:00 Admit Source: Other Insurance Payor: Private Room #: D.2107 health insurance, Medicare HIC #: [id number] Height (in.): 64.96 BSA: 1.67 (m2) Height (cm.): 165 BMI: 22.41 (kg/m2) Weight (lbs.): 134.48 Weight (kg.): 61 Lab Results Lab Result Date: 05/16/2019 Lab Result Time: 6:01 Biochemistry Name Units Result Min Max BUN mg/dl 14 --(--*-)-- 7 18 Creatinine mg/dl 0.6 --(*---)-- 0.6 1.3 CBC Name Units Result Min Max Hematocrit % 36.7 *-(----)-- 42 54 Hemoglobin g/dl 12.2 *-(----)-- 13.5 17.5 Procedure Procedure Types Cath Procedure Diagnostic Procedure [facility] w/Coron[facility] Procedure Description Procedure Date Procedure Date: 05/16/2019 Procedure Start Time: 15:06 Procedure End Time: 15:16 Procedure Staff Name Function Parish Gill MD Performing Physician Marisa Blair RT Scrub Ishaan Garibay RT Monitor Steven Zuniga RN Nurse Indication Angina Procedure Data Cath Procedure Fluoroscopy Diagnostic fluoroscopy Total fluoroscopy Time: 1.4 time: 1.4 min min Diagnostic fluoroscopy Total fluoroscopy dose: 220 dose: 220 mGy mGy Contrast Material Contrast Material Type Amount (ml) Isovue 300 44 Entry Location Entry Primary Successful Side Size Upsize Upsize Entry Closure Succes sful Closure Location (Fr) 1 (Fr) 2 (Fr) Remarks Device Remarks Femoral Right 5 Fr Exoseal artery Estimated blood loss: 5 ml Diagnostic catheters Device Type Used For End Catheter Placement MULTIPACK JL 4.0 5Fr Procedure catheter MULTIPACK 3DRC 5Fr Procedure catheter MULTIPACK Pigtail 5 Fr Procedure catheter Procedure Complications No complications Procedure Medications Medication Administration Route Dosage 0.9% NaCl I.V. 100 ml/hr Oxygen etCO2 Nasal cannula 2 l/min Heparin Flush Bag added to field 2 bags (1000units/500ml NS) Lidocaine 2% added to field 20 Benadryl I.V. 50 mg Versed I.V. 1 mg Fentanyl I.V. 50 mcg Versed I.V. 1 mg Fentanyl I.V. 50 mcg Hemodynamics Rest BSA: 1.67 (m2) HGB: 12.2 (g/dl) O2 Consumption: Estimated: 165.83 (ml/min) O2 Co nsumption indexed: Estimated:99.3 (ml/min/m) Heart Rate: 88 (bpm) Pressure Samples Time Site Value (mmHg) Purpose Heart Use Rate(bpm) 15:13 LV 107/-13,8 Snapshot 88 15:13 AO 112/50(76) Pullback 88 15:13 LV 120/-12,9 Pullback 88 Gradients Valve Time Site 1 Site 2 Mean SEP/DFP Peak To Heart Use (mmHg) (sec/min) Peak Rate (mmHg) (bpm) Aortic 15:13 LV AO 12 25 8 88 120/-12,9 112/50(76) Calculations Valve P-P Mean Valve Index Valve Source Name Gradient Area Flow (cm2) Aortic 8 12 8 12 Snapshots Pre Cath Intra NCS Post Cath Vital Signs Time Heart Resp SPO2 etCO2 NIBP Rhythm Pain Sedation Rate (ipm) (%) (mmHg) (mmHg) Status Level (bpm) 15:01:02 89 12 97 11.9 103/62(80) NSR 0 (11) 10(A) , No pain 15:05:09 86 17 97 24.7 99/60(79) NSR 0 (11) 10(A) , No pain 15:09:15 83 15 92 10.4 102/55(74) NSR 0 (11) 9(A) , No pain 15:13:19 86 14 93 11.2 107/65(80) NSR 0 (11) 9(A) , No pain Medications Time Medication Route Dose Verified Delivered Reason Notes Eff ectiveness by by 14:59:27 0.9% NaCl I.V. 100 Steven Steven Per ml/hr Efrain Zuniga physician RN RN 14:59:35 Oxygen etCO2 2 Steven Steven for low 02 Nasal l/min Lorigan Lorigan sats cannula RN RN 14:59:46 Heparin Flush added 2 Steven Steven used for Bag to bags Lorigan Lorigan procedure (1000units/500ml field RN RN NS) 14:59:56 Lidocaine 2% added 20ml Steven Steven for local to vial Lorigan Lorigan anesthetic field RN RN 15:02:02 Benadryl I.V. 50 mg Steven Steven Per Efrain Zuniga physician RN RN 15:02:13 Versed I.V. 1 mg Steven Steven for Lorigan Lorigan sedation RN RN 15:02:21 Fentanyl I.V. 50 Steven Steven for mcg Lorigan Lorigan sedation RN RN 15:04:22 Versed I.V. 1 mg Steven Steven for Lorigan Lorigan sedation RN RN 15:04:30 Fentanyl I.V. 50 Steven Steven for mcg Lorigan Lorigan sedation RN cottonseed meat presser Log Time Note 14:00:27 Informed consent obtained and on chart 14:02:40 Patient allergic to Other allergyNSAIDS, Morphine, codeine. 14:02:44 Admit Source: Other 14:02:47 Arrival Date: 05/16/2019 12:00:00 AM 14:03:42 Insurance Payor : Private health insurance, Medicare 14:03:51 Patient Weight : 134.48 lbs 14:03:55 Patient Height : 64.96 inches 14:05:14 Lab Result : BUN 14 mg/dl 14:05:14 Lab Result : Hematocrit 36.7 % 14:05:14 Lab Result : Hemoglobin 12.2 g/dl 14:05:14 Lab Result : Creatinine 0.6 mg/dl 14:05:52 Indication : Angina 14:05:55 Diagnostic Cath Status : Urgent 14:06:06 ACC Patient presents with Unstable Angina CCS Anginal Class 4--Inability to carry out any physical activity w/o angina. Angina may occur at rest. 14:06:11 ACCPatient has been prescribed/administered the following anti-anginal medication within the last 2 weeks: None 14:34:27 Procedure Status Urgent Heart Cath (IP). 14:34:29 Alonso Del Rosario RT(R) (CV) sent for patient. Start room use. 14:34:31 Time tracking: Regular hours (M-F 7:00 - 5:00) 14:34:33 Plan of Care:Hemodynamics will remain stable., Cardiac rhythm will remain stable., Comfort level will be maintained., Respiratory function will remain adequate., Patient/ family verbilizes understanding of procedure., Procedure tolerated without complication., Recovers from procedure without complications.. 14:34:42 H&P Date Dictated: 05/15/2019 Within 30 days and on chart.. 14:34:46 Lab results completed and on chart. 14:49:47 Patient received from Med II to [facility] 2 Alert and oriented. Tansferred to table in Supine position. 14:49:48 Warm blankets applied, and omer hugger turned on for patient comfort. 14:49:48 Correct patient and procedure confirmed by team. 14:49:50 ECG and BP/O2 sat monitors applied to patient. 14:49:51 Pre-procedure instructions explained to patient. 14:49:51 Pre-op teaching completed and patient verbalized understanding. 14:49:54 Family in patients room. 14:49:56 Patient NPO since Midnight. 14:57:38 Is the patient allergic to Iodine/contrast media? No. 14:57:39 Is patient on blood thinner?No 14:57:40 Patient diabetic? No. 14:57:42 Previous problem with sedation/anesthesia? No ? 14:57:43 Snore? No 14:57:44 Sleep apnea? No 14:57:44 Deviated septum? No 14:57:45 Opens mouth fully? Yes 14:57:46 Sticks out tongue? Yes 14:57:48 Airway obstruction? Yes COPD 14:57:50 Dentures? No ? 14:57:53 Pre procedure: right dorsailis pedis pulse 2+ Normal; easily identifiable; not easily obliterated 14:57:54 Modified Da's test Ulnar > 7 seconds. 14:57:57 Patient pain scale 0/10 ?. 14:58:02 IV patent on arrival in right antecubital with 0.9% NaCl at [facility]. 14:58:06 Right groin area was prepped with chlora-prep and draped in sterile fashion 14:58:06 Alarms reviewed by R. N. 14:58:07 Sharps counted by scrub and verified by R.N. 14:58:08 Use device set Femoral Dx 14:58:09 ACIST Syringe (52686) opened to sterile field. 14:58:09 Bag Decanter (2002S) opened to sterile field. 14:58:10 ACIST Hand Control (12696) opened to sterile field. 14:58:11 ACIST Manifold (64671) opened to sterile field. 14:58:11 Tegaderm 4 x 4 (1626W) opened to sterile field. 14:58:12 EMERALD Guide Wire (685-073) opened to sterile field. 14:58:13 SHEATH 5FR [place]ham (DPP110) opened to sterile field. 14:58:14 Medline Cath Pack ([id number]) opened to sterile field. 14:58:15 DIAGNOSTIC Multipack 5Fr catheter set (IC3590) opened to sterile field. 14:59:27 0.9% NaCl 100 ml/hr I.V. was administered by Steven Zuniga RN; Per physician; 14:59:35 Oxygen 2 l/min etCO2 Nasal cannula was administered by Steven Zuniga RN; for low 02 sats; 14:59:46 Heparin Flush Bag (1000units/500ml NS) 2 bags added to field was administered by Steven Zuniga RN; used for procedure; 14:59:56 Lidocaine 2% 20ml vial added to field was administered by Steven Lorigan RN; for local anesthetic; 14:59:59 Baseline sample Acquired. 14:59:59 Vital chart was started 15:00:03 Rhythm: sinus rhythm 15:00:04 Full Disclosure recording started 15:00:50 Physician arrived 15:00:51 --------ALL STOP TIME OUT------ 15:00:51 Final Timeout: patient, procedure, and site verified with staff and physician. All members of the team are in agreement. 15:00:52 Right groin site verified by team. 15:00:55 Fire Safety Assessment: A--An alcohol-based skin anteseptic being used preoperatively., C--Open oxygen or nitrous oxide is being used., D--An ESU, laser, or fiber-optic light is being used. 15:00:57 Physical assessment completed. ASA score P 2 - A patient with mild systemic disease as per Parish Gill MD. 15:01:13 2) 60-89 Mildly reduced kidney function, and other findings (as for stage 1) point to kidney disease. 15:01:26 Maximum allowable contrast dose (3.7 X eGFR X 0.75)244 ml. 15:01:29 Sedation plan: IV Moderate Sedation Medication:Versed, Fentanyl 15:02:02 Benadryl 50 mg I.V. was administered by Steven Zuniga RN; Per physician; 15:02:13 Versed 1 mg I.V. was administered by Steven Zuniga RN; for sedation; 15:02:21 Fentanyl 50 mcg I.V. was administered by Steven Zuniga RN; for sedation; 15:04:22 Versed 1 mg I.V. was administered by Steven Zuniga RN; for sedation; 15:04:30 Fentanyl 50 mcg I.V. was administered by Steven Zuniga RN; for sedation; 15:06:32 Zero performed for pressure channel P1 15:06:39 Procedure started. 15:06:41 Local anesthetic to right femoral artery with Lidocaine 2% by Parihs Gill MD.INITIAL ACCESS ONLY 15:07:32 A 5 Fr sheath was inserted into the Right Femoral artery 15:08:01 A MULTIPACK JL 4.0 5Fr catheter was advanced over the wire and used for Procedure. 15:08:51 LCA angiography performed. 15:10:07 Catheter exchanged over wire. 15:11:15 A MULTIPACK 3DRC 5Fr catheter was advanced over the wire and used for Procedure. 15:11:17 RCA angiography performed. 15:11:29 Catheter exchanged over wire. 15:11:33 A MULTIPACK Pigtail 5 Fr catheter was advanced over the wire and used for Procedure. 15:13:06 LV gram done using DUMONT 15:13:08 Injector settings: Ml/sec: 10, Volume: 20, 15:13:09 LV hemodynamics recorded. 15:13:16 EF : 55 % 15:14:21 Catheter removed. 15:14:22 EXOSEAL 5Fr (EX500) opened to sterile field. 15:14:29 Sheath removed intact; hemostasis achieved with Exoseal to the Right Femoral artery. 15:14:30 Procedure ended.(Physican Out) 15:14:54 Fluoroscopy time 01.40 minutes. 15:14:57 Fluoroscopy dose: 220 mGy 15:14:57 Flurop Dose total: 220 15:15:03 Dose Area Product 27690 mGy/cm. 15:15:08 Contrast amount:Isovue 300 44ml. 15:15:11 Maximum allowable dose exceeded? No. 15:15:12 Sharps counted by scrub and verified by R.N. 15:15:13 Insertion/operative site no bleeding no hematoma. 15:15:16 Post-op/insertion site Right Femoral artery dressed using a 4 x 4 and Tegaderm. 15:15:19 Post right femoral artery:stable, soft, clean and dry 15:15:20 Post Procedure Pulses reassessed and unchanged 15:15:22 Post-procedure physical assessment completed. ASA score P 2 - A patient with mild systemic disease as per Parish Gill MD. 15:15:24 Post procedure rhythm: unchanged. 15:15:55 Estimated blood loss: 5 ml 15:15:56 Post procedure instruction explained to patient.Patient verbalizes understanding. 15:15:56 Patient needs reinforcement of post procedure teaching. 15:16:19 Procedure and supply charges have been captured, reviewed, submitted and are correct. 15:16:21 Procedure Complication : No complications 15:16:23 Vital chart was stopped 15:16:24 See physician's report for complete and final results. 15:16:25 Report given to PCU. 15:16:27 Patient transfered to PCU with Stretcher. 15:16:37 Procedure ended. 15:16:37 Full Disclosure recording stopped 15:16:44 End room use (Document Last) Device Usage Item Name Manufacture Quantity Catalog Hospital Part Current Minimal L ot# / Number Charge Number Stock Stock Serial# Code ACKEN Acist 1 32916 113239 359556 646776 20 Syringe Medical (31896) Systems Inc Bag Microtek 1 2001S 361820 05704 233433 5 Decanter Medical Inc. (2001S) ACIST Hand Acist 1 53986 092141 247709 409439 5 Control Medical (61515) Systems Inc ACIST Acist 1 60171 393490 249892 535689 5 Manifold Medical (49015) Systems Inc Tegaderm 4 3M 1 1626W 702442 373861 750294 5 x 4 (1626W) EMERALD Cardinal 1 502-455 560759 908964 089749 5 Guide Wire Health (502-455) SHEATH 5FR Terumo 1 DTG101 192959 891999 845898 5 [place]ham (YGC664) Medline Medline 1 [id number] 075215 56590 759153 5 Cath Pack ([id number]) DIAGNOSTIC Cardinal 1 UT0746 392856 79135 072776 30 Multipack Health 5Fr catheter set (OA8994) MULTIPACK Cardinal 1 867381 5 JL 4.0 5Fr Health catheter MULTIPACK Cardinal 1 380097 5 3DRC 5Fr Health catheter MULTIPACK Cardinal 1 932562 5 Pigtail 5 Health Fr catheter EXOSEAL 5Fr Cardinal 1 EX500 616511 745015 072468 10 (EX500) Health Signature Audit [place] Stage Time Signature Unsigned Intra-Procedure 05/16/2019 Ishaan Garibay 3:17:36 PM RT(R) Signatures Performing Physician : Signature : Parish Gill MD Date : Time : Monitor : Ishaan Garibay RT Signature : Date : Time : Nurse : Steven Lorigan Signature : RN Date : Time : [facility] [address] [place] [address]
[2019-05-15 11:34] LABS: BASOPHILS 1.1 % (0-2); EOSINOPHILS 13.1 % (0-7); HEMATOCRIT 38.1 % (36.0-48.0); HEMOGLOBIN 12.9 g/dL (12-16); LYMPHOCYTES 31.2 % (15-50); MCH 33.5 pg (26.0-34.0); MCHC 33.9 g/dL (31.0-37.0); MONOCYTES 10.1 % (2-11); NEUTROPHILS 44.5 % (40-80); PLATELET COUNT 261 10x3/uL (130-400); RBC 3.85 10x6/uL (4.00-5.40); RDW 13.3 % (11.5-14.5); WBC 4.4 10x3/uL (4.8-10.8)
[2019-05-15 11:48] LABS: ALBUMIN 3.5 g/dL (3.4-5.0); ALKALINE PHOSPHATASE 91 U/L (46-116); ALT (SGPT) 18 U/L (10-68); CALC OSMOLALITY 284 mosm/kg (275-300); CARBON DIOXIDE 31.6 mmol/L (21.0-32.0); CHLORIDE - SERUM 106 mmol/L (98-107); CREATININE - SERUM 0.7 mg/dL (0.6-1.3); GLUCOSE 101 mg/dL (74-106); POTASSIUM - SERUM 3.8 mmol/L (3.5-5.1); SODIUM 143 mmol/L (136-145); UREA NITROGEN 12 mg/dL (7-18); eGFR NON AFRICAN AMERICAN 88 mL/min (90-120)
[2019-05-15 12:01] LABS: CREATINE KINASE 45 UL (21-215); PRO BNP 59 pg/mL (0-125); TROPONIN-I < 0.017 ng/mL (0.000-0.060)
[2019-05-15 15:44] LABS: CKMB 0.9 U/L (0.0-3.6); CREATINE KINASE 42 UL (21-215)
[2019-05-15 15:49] LABS: TROPONIN-I < 0.017 ng/mL (0.000-0.060)
[2019-05-15 17:06] VITALS: BP 112/68; BMI 22.5
--- NOTE | 2019-05-15 17:43 | MORECARE ---
CASE MANAGEMENT DISCHARGE SUMMARY PATIENT: MADAI WARD UNIT: [id number] ADM DATE: 05/15/19 AGE: 68 : 50 SEX: F ROOM/BED: D.2107 AUTHOR: CHENCHO BURDICK PHYSICIAN: REFERRING PHYSICIAN: SHAYE CONTRERAS MD DATE OF SERVICE: 05/15/19 Discharge Plan Patient Name: MADAI WARD Facility: [facility]:[place] : 1950 Planned Disposition: Anticipated Discharge Date: Discharge Date: Expected LOS: Initial Reviewer: [email or web address] Initial Review Date: 05/15/2019 Generated: 05/15/19 6:43 pm Patient Name: MADAI WARD Page [phone] at 1743 All edits/amendments must be made on the electronic document DICTATION DATE: 05/15/191742 MARKETING TECHNOLOGY SPECIALIST: EVA 05/15/191742 RPT#: [id number] [place] DATE: STATUS: ADM IN [facility] [address] [place] [address] END OF REPORT
--- NOTE | 2019-05-15 19:27 | NUR ---
RECIEVED RESTING IN BED WITH EYES OPEN AND TV ON. ALERT AND ORIENTED X4. O2@ 2 LITERS PER N/C. IV TO RIGHT AC SL.. C/O CHEST PAIN AND REQUESTING TYLENOL. TYLENOL GIVEN PER ORDERS. DENIES ANY OTHER NEEDS AT THIS TIME.
[2019-05-15 20:00] VITALS: BP 110/57
[2019-05-15 23:39] LABS: CKMB 1.2 U/L (0.0-3.6); CREATINE KINASE 44 UL (21-215); TROPONIN-I < 0.017 ng/mL (0.000-0.060)
[2019-05-16] VITALS: BP 93/55
[2019-05-16 04:00] VITALS: BP 97/56
--- NOTE | 2019-05-16 07:00 | NUR ---
RECEIVED REPORT. ASSUMED CARE OF PATIENT. RESTING IN BED WITH HOB ELEVATED. CALL LIGHT WITHIN REACH. PT HAS JUST COMPLETED BREATHING TX. NO DISTRESS. DENIES NEEDS AT THIS TIME. PT WONDERING IF CARDILOGY WILL COME EARLY BECAUSE SHE WANTS TO EAT BREAKFAST IF POSSIBLE. INFORMED PT CARDIOLOGY IS USUALLY HERE EARLY. NO FURTHER QUESTIONS OR NEEDS STATED.
[2019-05-16 07:02] LABS: CALC OSMOLALITY 288 mosm/kg (275-300); CALCIUM 9.4 mg/dL (8.5-10.1); CHLORIDE - SERUM 107 mmol/L (98-107); CKMB 0.9 U/L (0.0-3.6); CREATINE KINASE 41 UL (21-215); CREATININE - SERUM 0.6 mg/dL (0.6-1.3); GLUCOSE 148 mg/dL (74-106); POTASSIUM - SERUM 4.1 mmol/L (3.5-5.1); SODIUM 143 mmol/L (136-145); UREA NITROGEN 14 mg/dL (7-18); eGFR NON AFRICAN AMERICAN > 90 mL/min (90-120)
[2019-05-16 07:03] LABS: TROPONIN-I < 0.017 ng/mL (0.000-0.060)
[2019-05-16 07:04] LABS: BASOPHILS 0 % (0-2); EOSINOPHILS 0 % (0-7); HEMATOCRIT 36.7 % (36.0-48.0); HEMOGLOBIN 12.2 g/dL (12-16); IMMATURE GRANULOCYTES 0.2 % (0-5); LYMPHOCYTES 12.7 % (15-50); MCH 32.4 pg (26.0-34.0); MCHC 33.2 g/dL (31.0-37.0); MCV 97.6 fL (80.0-100.0); MEAN PLATELET VOLUME 9.1 fL (7.4-10.4); MONOCYTES 1.6 % (2-11); NEUTROPHILS 85.5 % (40-80); PLATELET COUNT 268 10x3/uL (130-400); RBC 3.76 10x6/uL (4.00-5.40); RDW 13.1 % (11.5-14.5); WBC 4.3 10x3/uL (4.8-10.8)
[2019-05-16 08:31] VITALS: BP 113/63
--- NOTE | 2019-05-16 09:01 | NUR ---
CONSENTS SIGNED AND ON THE CHART.
--- NOTE | 2019-05-16 09:45 | NUR ---
SHOWER COMPLETE. LINENS CHANGED. BILATERAL GROIN AND RIGHT WRIST AREA CLIPPED AND PREPED FOR HEART CATH THIS AFTERNOON. TELEMETRY REAPPLIED. NO DISTRESS.
[2019-05-16 11:49] VITALS: BP 103/61
[2019-05-16 12:31] VITALS: Ht 165.1 cm; Wt 61.2 kg
--- NOTE | 2019-05-16 14:45 | NUR ---
PATIENT LEFT UNIT VIA BED AT THIS TIME FOR PRESIDENT AND CEO. MEDICATIONS RETURNED TO [facility] DUE TO NOBODY CALLED TO HAVE THE PATIENT PREOPT PRIOR TO COMING TO RETRIEVE THE PATIENT. PATIENT LEFT UNIT VIA BED IN NO ACUTE DISTRESS.
--- NOTE | 2019-05-16 15:49 | NUR ---
RECEIVED PATIENT BACK FROM PLASTERER FOREMAN AT 1525. RESTING WELL, EASILY AROUSED. PERIPHERAL PULSES PATENT. NO S/S HEMATOMA FORMATION TO RIGHT GROIN. IV FLUIDS INFUSING ORDERED. BP 119/58. NO DISTRESS.
--- NOTE | 2019-05-16 16:00 | NUR ---
RESTING IN BED WITH EYES CLOSED. PERIPHERAL PULSES PATENT. NO HEMATOMA TO RIGHT FEMORAL. CALL LIGHT WITHIN REACH. NO DISTRESS.
--- NOTE | 2019-05-16 17:00 | NUR ---
PATIENT WITH EYES OPEN, READY TO GET UP. INFORMED PATIENT THAT SHE WOULD NEED TO WAIT 30 MORE MINUTES. PATIENT VERBALIZED UNDERSTANDING.
--- NOTE | 2019-05-16 17:30 | NUR ---
PATIENT SITTING UP IN BED AT THIS TIME CONSUMING PM MEAL. PATIENT SON AT BEDSIDE. NO HEMATOMA FORMATION NOTED TO RIGHT FEMORAL. CALL LIGHT WITHIN REACH. NO DISTRESS.
--- NOTE | 2019-05-16 18:25 | NUR ---
PATIENT MOVED FROM 2106 TO 2100 TO ACCOMODATE FOR OTHER PATEINT NEEDING TO BE CLOSER TO NURSES STATION.
--- NOTE | 2019-05-16 19:20 | NUR ---
PT CARE ASSUMED. PT IN BED RR EVEN AND UNLABORED. DENIES PAIN AT THIS TIME. DRESSING TO RIGHT GROIN C/D/I. NO S/S OF DISTRESS NOTED. NO NEEDS EXPRESSED. WILL CTM.
[2019-05-16 20:00] VITALS: BP 95/51
[2019-05-17] VITALS: BP 96/57
[2019-05-17 04:00] VITALS: BP 109/63
[2019-05-17 05:02] LABS: BASOPHILS 0 % (0-2); EOSINOPHILS 0 % (0-7); HEMATOCRIT 36.2 % (36.0-48.0); HEMOGLOBIN 12.3 g/dL (12-16); IMMATURE GRANULOCYTES 0.3 % (0-5); LYMPHOCYTES 4.3 % (15-50); MCH 33.6 pg (26.0-34.0); MCV 98.9 fL (80.0-100.0); MEAN PLATELET VOLUME 9.2 fL (7.4-10.4); MONOCYTES 1.6 % (2-11); NEUTROPHILS 93.8 % (40-80); PLATELET COUNT 267 10x3/uL (130-400); RBC 3.66 10x6/uL (4.00-5.40); RDW 13.3 % (11.5-14.5)
[2019-05-17 05:05] LABS: WBC 11.6 10x3/uL (4.8-10.8)
[2019-05-17 05:18] LABS: CALC OSMOLALITY 286 mosm/kg (275-300); CALCIUM 8.9 mg/dL (8.5-10.1); CARBON DIOXIDE 30.3 mmol/L (21.0-32.0); CHLORIDE - SERUM 106 mmol/L (98-107); GLUCOSE 150 mg/dL (74-106); POTASSIUM - SERUM 4.3 mmol/L (3.5-5.1); SODIUM 142 mmol/L (136-145); UREA NITROGEN 16 mg/dL (7-18); eGFR NON AFRICAN AMERICAN 75 mL/min (90-120)
[2019-05-17 05:25] LABS: CREATININE - SERUM 0.8 mg/dL (0.6-1.3)
--- NOTE | 2019-05-17 07:00 | NUR ---
PT RESTING COMFORTABLY UPON ENTERING WITH EYES CLOSED. BREATHING EVEN AND UNLABORED NO S/S OF DISTRESS. BED IN LOWEST POSITION, BED RAILS X2, CALL LIGHT WITHIN REACH. WILL CTM.
--- NOTE | 2019-05-17 08:05 | NUR ---
PT SITTING UP RIGHT UPON ENTERING. ALERT AND ORIENTED X3. REQUESTED COFFEE, PROVIDED PROMPTLY. DENIES OTHER NEEDS. WILL CTM.
--- NOTE | 2019-05-17 09:12 | NUR ---
ADMINISTERED MEDICATION AT THIS TIME, NO TROUBLE SWALLOWING. PT RESTING COMFORTABLY UPRIGHT IN BED. PROVIDED PT WITH COKE PER REQUEST. DENIES OTHER NEEDS. WILL CTM.
--- NOTE | 2019-05-17 12:45 | NUR ---
PT REQUESTED CONSULT WITH DR. THOMSON. PERSONALLY CALLED AND PUT IN CONSULT. HE REPORTED HE WOULD BE HERE "THIS AFTERNOON". PT NOW REQUESTING TO BE DISCHARGED IMMEDIATELY. PT RUDE TO NURSE STATING, "ARE YOU GOING TO FIND ANYTHING OUT FOR ME?" "YOU'VE KNOWN I'VE WANTED TO LEAVE SINCE 8:30 AM". "I'VE A HORRIBLE EXPERIENCE AT THIS HOSPITAL THIS STAY." REQUESTED TO SPEAK TO MEHUL MICHAELS, NOTIFIED.
--- NOTE | 2019-05-17 13:10 | NUR ---
PT SPOKE WITH MEHUL MICHAELS, NOW WANTS DR THOMSON LOCATED AND ASKED WHEN HE WILL BE TO SEE HER.
[2019-05-17] MEDS ORDERED: LEVAQUIN750 MG PO (13:17)
--- NOTE | 2019-05-17 15:05 | NUR ---
REMOVED PT IV WITH CATHETER TIP INTACT. TOLERATED WELL.
--- NOTE | 2019-05-17 15:17 | NUR ---
DR. THOMSON IN PT ROOM.
--- NOTE | 2019-05-17 16:47 | MORECARE ---
CASE MANAGEMENT DISCHARGE SUMMARY PATIENT: MADAI WARD UNIT: [id number] ADM DATE: 05/15/19 AGE: 68 : 50 SEX: F ROOM/BED: D.2105 AUTHOR: CHENCHO BURDICK PHYSICIAN: REFERRING PHYSICIAN: SHAYE CONTRERAS MD DATE OF SERVICE: 05/17/19 Discharge Plan Patient Name: [facility]ADAI WARD [facility] [facility] 1950 Planned Disposition: Home Anticipated Discharge Date: 05/17/19 Discharge Date: 05/17/2019 Expected LOS: 2 Initial Reviewer: [email or web address] Initial Review Date: 05/15/2019 Generated: 05/17/19 5:47 pm DCPIA - Discharge Planning Initial Assessment Updated by [email or web address]: Raffaele Wylie on 05/17/19 4:44 pm * Is the patient Alert and Oriented? Yes * How many steps to enter\exit or inside your home? * PCP IRVIN MATHEWS AT [facility] IN [facility] * Pharmacy [facility] IN [place] * Preadmission Environment Home Alone * ADLs Independent * Equipment Back Brace Nebulizer Oxygen * Other Equipment HOME OXYGEN, [facility] IS PROVIDER * List name and contact numbers for known caregivers / representatives who currently or will assist patient after discharge: MARY MUÑOZ, SON, * Verbal permission to speak to the caregivers and representatives has been obtained from the patient. Yes * Community resources currently utilized None * Please name any agencies selected above. NONE * Additional services required to return to the preadmission environment? No * Can the patient safely return to the preadmission environment? Yes * Has this patient been hospitalized within the prior 30 days at any hospital? No Last DP export: 05/15/19 4:43 p Patient Name: MADAI WARD Page 48554 at 1647 All edits/amendments must be made on the electronic document DICTATION DATE: 05/17/191646 SHRIMP PEELING MACHINE OPERATOR: EVA 05/17/191646 RPT#: [id number] DC DATE:05/17/19 STATUS: DIS IN [place] [id number] [place] [address] END OF REPORT
--- NOTE | 2019-05-17 16:56 | MORECARE ---
CASE MANAGEMENT DISCHARGE SUMMARY PATIENT: MADAI WARD UNIT: [id number] ADM DATE: 05/15/19 AGE: 68 : 50 SEX: F ROOM/BED: D.5159 AUTHOR: GENNARO,DOC PHYSICIAN: REFERRING PHYSICIAN: SHAYE CONTRERAS MD DATE OF SERVICE: 05/17/19 Discharge Plan Patient Name: MADAI WARD Facility: [facility]:[place] : 1950 Planned Disposition: Home Anticipated Discharge Date: 05/17/19 Discharge Date: 05/17/2019 Expected LOS: 2 Initial Reviewer: [email or web address] Initial Review Date: 05/15/2019 Generated: 05/17/19 5:55 pm Comments DCP- Discharge Planning Updated by [email or web address]: Raffaele Wylie on 05/17/19 3:[address] Patient Name: MADAI WARD Admission Status: ER Accout number: [id number] Admission Date: 05-15-2019 : 1950 Admission Diagnosis:SHORTNESS OF BREATH Attending: SHAYE CONTRERAS Current LOS: 2 Anticipated DC Date: 05-17-2019 Planned Disposition: Home Primary Insurance: MEDICARE A & B Discharge Planning Comments: CM MET WITH PT AND SON IN ROOM TO DISCUSS DISCHARGE PLANNING AND NEEDS.MADAI WARD provided verbal consent to discuss current and ongoing needs with/in the presence of: HER SON, TONI. PT REPORTS BEING VERY UNHAPPY SHE WAS TOLD THAT DR. THOMSON WOULD SEE HER AND HE DID NOT. CM ATTEMPTED TO EXPLAIN THAT DR. THOMSON WAS NOT CONSULTED BY ORDER UNTIL TODAY. PT'S SON REPORTS THEY ARE TIRED OF EXCUSES, ARE NOT WAITING ON DR. THOMSON AND IT IS THE HOSPITALS FAULT THIS HAPPENED. CM APOLOGIZED AND ASKED IF PT NEEDS ANYTHING FOR DISCHARGE HOME. PT DENIES NEEDS, SON HERE TO TAKE HER HOME NOW. PT REPORTS LIVING AT HOME INDEPENDENTLY AND ALONE, THREE STEPS TO CLIMB UP INTO HER HOME. PT HAS NEBULIZER, HOME OXYGEN AND BEDSIDE COMMODE FROM [facility]. PT HAS NO OUTSIDE SERVICES ASSISTING IN THE HOME. CM DISCUSSED AVAILABILITY OF HOME HEALTH, REHAB SERVICES AND MEDICAL EQUIPMENT. PT DENIES DISCHARGE NEEDS, REPORTS HER SON IS HERE TO PICK HER UP FOR DISCHARGE HOME. IMPORTANT MESSAGE FROM MEDICARE PROVIDED AND EXPLAINED. PT ASKED IF HER INSURANCE WOULD PAY FOR A PORTABLE NEBULIZER. CM CALLED [facility], SPOKE TO WENDY WHO LOOKED UP PT'S ACCOUNT AND INFORMED CM THAT PT CAN GET A NEW ONE IN APPROXIMATELY 4 YEARS AND INSURANCE WOULD PAY FOR IT THEN. WENDY OFFERED TO SELL PORTABLE NEBULIZER TO PT FOR $90. CM INFORMED PT WHO WILL CALL WENDY TO ARRANGE PURCHASE. PT DENIES FURTHER NEEDS AND WANTS TO LEAVE NOW. CM NOTIFIED RN ENDOCRINOLOGY NURSE. Cut In Station Operator: Raffaele Wylie DCPIA - Discharge Planning Initial Assessment Updated by [email or web address]: Raffaele Wylie on 05/17/19 4:44 pm * Is the patient Alert and Oriented? Yes * How many steps to enter\exit or inside your home? * PCP IRVIN MATHEWS AT [facility] IN [facility] * Pharmacy [facility] IN [place] * Preadmission Environment Home Alone * ADLs Independent * Equipment Back Brace Nebulizer Oxygen * Other Equipment HOME OXYGEN, [facility] IS PROVIDER * List name and contact numbers for known caregivers / representatives who currently or will assist patient after discharge: MARY MUÑOZ, SON, * Verbal permission to speak to the caregivers and representatives has been obtained from the patient. Yes * Community resources currently utilized None * Please name any agencies selected above. NONE * Additional services required to return to the preadmission environment? No * Can the patient safely return to the preadmission environment? Yes * Has this patient been hospitalized within the prior 30 days at any hospital? No Last DP export: 05/17/19 3:47 p Patient Name: MADAI WARD Page 83482 at 1656 All edits/amendments must be made on the electronic document DICTATION DATE: 05/17/191654 DIETITIAN TEACHING: EVA 05/17/191654 RPT#: [id number] DC DATE:05/17/19 STATUS: DIS IN [facility] [address] [place] [address] END OF REPORT
== END 2019-05-17 15:57 | disposition home or self-care (01) | DRG 189 ==
LOC: D.ER 11:07 → D.M2 15:18
PROVIDERS: Emergency Medicine; Internal Medicine Cardiovascular Disease; ADMIT Internal Medicine Nephrology; ATTEND Internal Medicine Nephrology
PROC: B2151ZZ Fluoroscopy of Left Heart using Low Osmolar Contrast (ICD-10-PCS; 2019-05-16)
PROC: 4A023N7 Measurement of Cardiac Sampling and Pressure, Left Heart, Percutaneous Approach (ICD-10-PCS; 2019-05-16)
PROC: B2111ZZ Fluoroscopy of Multiple Coronary Arteries using Low Osmolar Contrast (ICD-10-PCS; principal; 2019-05-16 14:34)
DX: J96.21 Acute and chronic respiratory failure with hypoxia (principal); J44.0 Chronic obstructive pulmonary disease with (acute) lower respiratory infection; J44.1 Chronic obstructive pulmonary disease with (acute) exacerbation; F17.213 Nicotine dependence, cigarettes, with withdrawal; J20.9 Acute bronchitis, unspecified; J30.9 Allergic rhinitis, unspecified; K21.9 Gastro-esophageal reflux disease without esophagitis; M41.9 Scoliosis, unspecified

== ENCOUNTER → 2019-06-05 09:18 | Outpatient (CLI) | payer MEDICARE, OTHER ==
[2019-05-16 12:31] VITALS: BMI 22.4
== END | disposition home or self-care (01) ==
LOC: D.RT 09:18
PROVIDERS: ATTEND Internal Medicine Pulmonary Disease
DX: J44.9 Chronic obstructive pulmonary disease, unspecified (principal)

== ENCOUNTER 2019-10-01 10:14 | Inpatient (IN) | payer MEDICARE, OTHER ==
[~2019-10-01] VITALS: Ht 165.1 cm; Wt 63.5 kg
--- NOTE | ~2019-10-01 | CN ---
PATIENT NAME:MADAI JONES MEDICAL RECORD: [id number] : 50 LOCATION:D.M3 D.1206 ADMIT DATE: 10/01/19 ACCOUNT: [id number] CONSULTING PHYSICIAN: SPEEDY BATEMAN MD REFERRING PHYSICIAN: DELANEY ROGER MD DATE OF CONSULTATION: 10/01/2019 CONSULT REQUESTING PHYSICIAN: Dr. Campuzano. REASON FOR CONSULTATION: Acute exacerbation of chronic obstructive pulmonary disease. HISTORY OF PRESENT ILLNESS: Ms. Jones is a 68-year-old female, very well known to our services. She has moderate severe COPD and having history of pulmonary nodule that turned out to be benign, followed by Dr. Casey. Ms. Jones is sick since Wednesday. She did not take any steroid inhaler. She was getting worse with wheezing. She was coughing. She was in shortness of breath and mild exertion. The patient came into the ER. REVIEW OF SYSTEMS: As in history of present illness. PAST MEDICAL HISTORY: 1. Pulmonary nodule. 2. COPD, moderate to severe degree with FEV1 of 52%. 3. Gastroesophageal reflux disease. 4. Scoliosis. 5. Pulmonary nodule and that workup was negative, followed by Dr. Casey. 6. Anxiety, depression, and history of pneumonia in the past. ALLERGIES: SHE IS ALLERGIC TO CODEINE AND MORPHINE. MEDICATIONS: Anonymesstech is reviewed. PERSONAL AND SOCIAL HISTORY: The patient is an ex-smoker. She is a nondrinker. FAMILY HISTORY: Noncontributory. PHYSICAL EXAMINATION: GENERAL: Now, the patient is lying comfortably in bed. She is not in acute distress. VITAL SIGNS: The blood pressure 110/63, pulse is 97, respiration is 22, temperature 98.2, and SPO2 is 96% on 2 liters nasal cannula. HEENT: Conjunctivae are pink. Sclerae are not icteric. NECK: Supple, no JVD. CHEST: There is prolonged expiration with wheezing. There is a scoliosis. HEART: Rhythm regular, normal sound, no murmur. ABDOMEN: Soft, bowel sounds present. No hepatosplenomegaly. RECTAL: Deferred. EXTREMITIES: No cyanosis, no clubbing, no pedal edema. CENTRAL NERVOUS SYSTEM: The patient is awake and alert. There is no obvious cranial nerve abnormality. The gait was not tested. CHEST RADIOGRAPH: Hyperinflation, no acute infiltrate. LABORATORY DATA: ABG: The pH is 7.40, pCO2 of 42.2, pO2 was 82, bicarbonate is CONSULT REPORT [id number] MADAI JONES 26.6, this was done on 1 liter nasal cannula. IMPRESSION: 1. Acute exacerbation of chronic obstructive pulmonary disease. 2. Tracheobronchitis. 3. Acute hypoxic respiratory failure. 4. Gastroesophageal reflux disease. 5. History of pulmonary nodules in the past. The workup was negative, followed by Dr. Casey. 6. Scoliosis. 7. Ex-smoker. RECOMMENDATION: 1. Albuterol/ipratropium nebulizer. 2. Brovana, budesonide nebulizer. 3. Methylprednisolone IV. 4. Daliresp 1 tablet daily. 5. Start Rocephin IV. 6. Methylprednisolone IV. 7. Follow up labs and chest radiograph. Discussed with Dr. Campuzano. Thank you for involving me in the care of Ms. Jones. TRANSINT:[id number] Voice Confirmation ID: [id number] DOCUMENT ID: [id number] SPEEDY BATEMAN MD CC: [id number] DICTATION DATE: 10/01/19 1628 SHORTS SIFTER: 10/02/19 0347 ADM IN [facility] [address] [place] [address]
[2019-10-01 10:56] LABS: BASOPHILS 1.1 % (0-2); EOSINOPHILS 8.3 % (0-7); HEMATOCRIT 41.2 % (36.0-48.0); HEMOGLOBIN 13.6 g/dL (12-16); IMMATURE GRANULOCYTES 0.3 % (0-5); LYMPHOCYTES 33.2 % (15-50); MCH 33.4 pg (26.0-34.0); MCV 101.2 fL (80.0-100.0); MEAN PLATELET VOLUME 8.4 fL (7.4-10.4); NEUTROPHILS 50.1 % (40-80); PLATELET COUNT 294 10x3/uL (130-400); RBC 4.07 10x6/uL (4.00-5.40); RDW 13.2 % (11.5-14.5); WBC 6.5 10x3/uL (4.8-10.8)
[2019-10-01 11:13] LABS: APTT 23.8 SECONDS (22.8-39.4); INR 0.94 (0.85-1.17); PROTIME 12.5 SECONDS (11.6-15.0)
[2019-10-01 11:14] LABS: D-DIMER-QUANTITATIVE < 0.27 ug/mLFEU (0.20-0.54)
[2019-10-01 11:19] LABS: CALC OSMOLALITY 283 mosm/kg (275-300); CALCIUM 8.6 mg/dL (8.5-10.1); CARBON DIOXIDE 30.3 mmol/L (21.0-32.0); CHLORIDE - SERUM 106 mmol/L (98-107); CREATININE - SERUM 0.7 mg/dL (0.6-1.3); POTASSIUM - SERUM 3.7 mmol/L (3.5-5.1); SODIUM 142 mmol/L (136-145); UREA NITROGEN 15 mg/dL (7-18); eGFR NON AFRICAN AMERICAN 88 mL/min (90-120)
[2019-10-01 11:20] LABS: GLUCOSE 97 mg/dL (74-106)
[2019-10-01 11:26] VITALS: BP 106/66
[2019-10-01 11:27] LABS: ALBUMIN 3.5 g/dL (3.4-5.0); ALKALINE PHOSPHATASE 78 U/L (46-116); ALT (SGPT) 16 U/L (10-68); BILIRUBIN - TOTAL 0.36 mg/dL (0.2-1.3); CKMB 1.3 U/L (0.0-3.6); CREATINE KINASE 27 UL (21-215); MAGNESIUM - SERUM 2.3 mg/dL (1.8-2.4); PRO BNP 32 pg/mL (0-125); PROTEIN - SERUM 6.5 g/dL (6.4-8.2)
[2019-10-01 11:28] LABS: TROPONIN-I < 0.017 ng/mL (0.000-0.060)
[2019-10-01] MEDS ORDERED: TRELEGY ELLIPT1 EACH INH (12:13)
--- NOTE | 2019-10-01 12:15 | NUR ---
ARRIVE TO ROOM VIA STRETCHER FROM ER. AMBULATES TO BED. GAIT STEADY. MANDUJANO. O2 @ 2L NC. ALERT AND ORIENTED X4. DNR PAPER PLACED ON CHART PER PATIENT REQUEST. REFUSES SCDs. CONTINUE ADMISSION PROCESS AND SAFETY PRECAUTIONS.
[2019-10-01 13:15] VITALS: BP 103/67; BMI 23.3
[2019-10-01 15:29] VITALS: BP 110/63
--- NOTE | 2019-10-01 18:37 | NUR ---
SENT PAGE TO FOR CONSULT. PATIENT REPORT EPIGASTRIC PAIN CAUSING SOB. O2 SAT 95% WITH 2L NC. CALL IRVIN RODAS REPORT PAIN. TYLENOL 625mg Q4HPRN ORDERED.
--- NOTE | 2019-10-01 19:17 | NUR ---
PATIENT SITTING UP IN THE CHAIR WITH C/O 8/10 PAIN. TOLD PATIENT THE DAYSHIFT NURSE HAD SPOKEN TO THE ON-CALL AND TYLENOL WAS ORDERED. PATIENT STATED SHE DOES NOT THINK IT WILL WORK BUT SHE WILL TRY IT. SON AT BEDSIDE. TOLD PATIENT I WILL BE BACK TO REASSESS HER PAIN. PATIENT VERBALIZED UNDERSTANDING. PATIENT DENIES OTHER NEEDS AT THIS TIME. BED IN LOWEST POSITION AND CALL LIGHT WITHIN REACH. ENCOURAGED THE PATIENT TO CALL IF SHE HAS NEEDS. WILL CONTINUE TO MONITOR.
[2019-10-01 20:32] VITALS: BP 116/62
--- NOTE | 2019-10-01 20:46 | NUR ---
PATIENT STATES PAIN IS GETTING BETTER. PATIENT RATES PAIN 6/10 AT THIS TIME
--- NOTE | 2019-10-01 21:03 | NUR ---
SPOKE WITH DR. ANTUNEZ AND NOTIFIED HIM OF CONSULT
[2019-10-02 00:23] VITALS: BP 109/62
[2019-10-02 04:00] VITALS: BP 110/59
[2019-10-02 06:46] LABS: BASOPHILS 0 % (0-2); EOSINOPHILS 0 % (0-7); HEMOGLOBIN 12.8 g/dL (12-16); IMMATURE GRANULOCYTES 0.2 % (0-5); MCH 32.5 pg (26.0-34.0); MCV 101.5 fL (80.0-100.0); MEAN PLATELET VOLUME 8.8 fL (7.4-10.4); MONOCYTES 1.3 % (2-11); NEUTROPHILS 95.5 % (40-80); PLATELET COUNT 307 10x3/uL (130-400); RBC 3.94 10x6/uL (4.00-5.40); RDW 13.1 % (11.5-14.5)
[2019-10-02 06:47] LABS: WBC 8.3 10x3/uL (4.8-10.8)
[2019-10-02 07:00] LABS: ALBUMIN 3.3 g/dL (3.4-5.0); ALKALINE PHOSPHATASE 75 U/L (46-116); ALT (SGPT) 20 U/L (10-68); BILIRUBIN - TOTAL 0.15 mg/dL (0.2-1.3); CALC OSMOLALITY 283 mosm/kg (275-300); CALCIUM 8.7 mg/dL (8.5-10.1); CARBON DIOXIDE 30.4 mmol/L (21.0-32.0); CHLORIDE - SERUM 106 mmol/L (98-107); CREATININE - SERUM 0.8 mg/dL (0.6-1.3); GLUCOSE 122 mg/dL (74-106); PROTEIN - SERUM 6.4 g/dL (6.4-8.2); SODIUM 141 mmol/L (136-145); UREA NITROGEN 19 mg/dL (7-18); eGFR NON AFRICAN AMERICAN 75 mL/min (90-120)
--- NOTE | 2019-10-02 07:40 | NUR ---
PT TO XRAY.
[2019-10-02 07:50] VITALS: BP 114/60
--- NOTE | 2019-10-02 08:12 | NUR ---
AM MEDS GIVEN AT THIS TIME. PT A/O X4, RESP EVEN AND NONLABORED ON 2L.PT DENIES ANY NEEDS AT THIS TIME. CALL LIGHT IN REACH, NAD NOTED, WILL CONTINUE TO MONITOR.
[2019-10-02 11:29] VITALS: BP 111/62
[2019-10-02 13:06] LABS: APPEARANCE CLEAR (CLEAR); BILIRUBIN NEGATIVE (NEGATIVE); COLOR YELLOW (YELLOW); GLUCOSE NEGATIVE (NEGATIVE); KETONE NEGATIVE (NEGATIVE); NITRITE NEGATIVE (NEGATIVE); PROTEIN NEGATIVE (NEGATIVE); UROBILINOGEN NORMAL (NORMAL)
--- NOTE | 2019-10-02 13:36 | MORECARE ---
CASE MANAGEMENT DISCHARGE SUMMARY PATIENT: MADAI WARD UNIT: [id number] ADM DATE: 10/01/19 AGE: 68 : 50 SEX: F ROOM/BED: D.1206 AUTHOR: CHENCHO BURDICK PHYSICIAN: REFERRING PHYSICIAN: DELANEY ROGER MD DATE OF SERVICE: 10/02/19 Discharge Plan Patient Name: MADAI WARD Facility: [facility]:[place] : 1950 Planned Disposition: Home Anticipated Discharge Date: Discharge Date: Expected LOS: Initial Reviewer: [email or web address] Initial Review Date: 10/01/2019 Generated: 10/02/19 2:36 pm Patient Name: MADAI WARD Page 12793 at 1336 All edits/amendments must be made on the electronic document DICTATION DATE: 10/02/19 1336 BOARD SETTER: EVA 10/02/19 1336 RPT#: [id number] DC DATE: STATUS: ADM IN [facility] [address] [place] [address] END OF REPORT
[2019-10-02 13:40] VITALS: Ht 165.1 cm; Wt 63.5 kg
--- NOTE | 2019-10-02 13:44 | MORECARE ---
CASE MANAGEMENT DISCHARGE SUMMARY PATIENT: MADAI WARD UNIT: [id number] ADM DATE: 10/01/19 AGE: 68 : 50 SEX: F ROOM/BED: D.1206 AUTHOR: CHENCHO BURDICK PHYSICIAN: REFERRING PHYSICIAN: DELANEY ROGER MD DATE OF SERVICE: 10/02/19 Discharge Plan Patient Name: MADAI WARD [facility] [facility] 1950 Planned Disposition: Home Anticipated Discharge Date: Discharge Date: Expected LOS: Initial Reviewer: [email or web address] Initial Review Date: 10/01/2019 Generated: 10/02/19 2:44 pm DCPIA - Discharge Planning Initial Assessment Updated by [email or web address]: Felipa Little on 10/02/19 1:41 pm * Is the patient Alert and Oriented? Yes * How many steps to enter\exit or inside your home? 4/RAIL * PCP [facility] * Pharmacy [facility] IN [place] * Preadmission Environment Home Alone * ADLs Independent * Equipment Nebulizer Oxygen * Other Equipment DENIES ANY OTHER DME * List name and contact numbers for known caregivers / representatives who currently or will assist patient after discharge: KARINE QUINTEROS [facility]- [phone] TONI HERNANDEZ [facility]- [phone] * Community resources currently utilized None * Please name any agencies selected above. N/A * Additional services required to return to the preadmission environment? No * Can the patient safely return to the preadmission environment? Yes * Has this patient been hospitalized within the prior 30 days at any hospital? No Last DP export: 10/02/19 12:36 p Patient Name: MADAI WARD Page 32277 at 1344 All edits/amendments must be made on the electronic document DICTATION DATE: 10/02/19 1344 CRACKING MACHINE OPERATOR: EVA 10/02/19 1344 RPT#: [id number] DC DATE: STATUS: ADM IN [facility] [address] [place] [address] END OF REPORT
--- NOTE | 2019-10-02 14:28 | NUR ---
PT RESTING COMFORTABLY IN BED, WAITING FOR DOCTOR TO ROUND. DENIES ANY NEEDS AT THIS TIME. CALL LIGHT IN REACH, NAD NOTED.
[2019-10-02 16:29] VITALS: BP 106/53
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
--- NOTE | 2019-10-02 19:15 | NUR ---
PATIENT RESTING IN BED WITH NO S/S OF DISTRESS. PATIENT DENIES NEEDS AT THIS TIME. BED IN LOWEST POSITION AND CALL LIGHT WITHIN REACH. ENCOURAGED THE PATIENT TO CALL IF SHE HAS NEEDS. WILL CONTINUE TO MONITOR.
[2019-10-02 19:36] VITALS: BP 97/58
--- NOTE | 2019-10-02 20:13 | NUR ---
SPOKE WITH DR. ANTUNEZ WHO REQUESTED THE PATIENT BE NPO AFTER MIDNIGHT FOR EGD TOMORROW. DISCUSSED WITH PATIENT. PATIENT VERBALIZED UNDERSTANDING.
[2019-10-03] VITALS (7 sets, daily range): BP systolic 100–111; BP diastolic 49–62
[2019-10-03 06:10] LABS: BASOPHILS 0 % (0-2); EOSINOPHILS 0 % (0-7); HEMOGLOBIN 12.3 g/dL (12-16); IMMATURE GRANULOCYTES 0.2 % (0-5); LYMPHOCYTES 2.5 % (15-50); MCH 32.7 pg (26.0-34.0); MCHC 32.4 g/dL (31.0-37.0); MCV 101.1 fL (80.0-100.0); MONOCYTES 2.3 % (2-11); PLATELET COUNT 328 10x3/uL (130-400); RBC 3.76 10x6/uL (4.00-5.40); RDW 13.6 % (11.5-14.5)
[2019-10-03 06:19] LABS: ALBUMIN 3.1 g/dL (3.4-5.0); ALKALINE PHOSPHATASE 71 U/L (46-116); ALT (SGPT) 16 U/L (10-68); CALC OSMOLALITY 285 mosm/kg (275-300); CALCIUM 8.9 mg/dL (8.5-10.1); CARBON DIOXIDE 28.7 mmol/L (21.0-32.0); CHLORIDE - SERUM 106 mmol/L (98-107); CREATININE - SERUM 0.7 mg/dL (0.6-1.3); GLUCOSE 139 mg/dL (74-106); POTASSIUM - SERUM 4.4 mmol/L (3.5-5.1); PROTEIN - SERUM 5.7 g/dL (6.4-8.2); SODIUM 141 mmol/L (136-145); UREA NITROGEN 20 mg/dL (7-18); eGFR NON AFRICAN AMERICAN 88 mL/min (90-120)
[2019-10-03 06:43] LABS: WBC 16.4 10x3/uL (4.8-10.8)
--- NOTE | 2019-10-03 08:03 | NUR ---
CONSENTS SIGNED BY PT AND PLACED ON CHART. PT DENIES ANY OTHER NEEDS AT THIS TIME, CALL LIGHT IN REACH, NAD NOTED, WILL CONTINUE TO MONITOR.
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
--- NOTE | 2019-10-03 15:23 | NUR ---
PRE-OP MEDS GIVEN, PT TO GI LAB AT THIS TIME.
--- NOTE | 2019-10-03 16:15 | NUR ---
1615 18-20F ISAAC TITUSITATION DONE
--- NOTE | 2019-10-03 16:28 | NUR ---
1628 REPORT GIVEN TO PT. BY DR. ANTUNEZ.
--- NOTE | 2019-10-03 16:58 | NUR ---
RECEIVED PT BACK TO ROOM 1206. VITAL SIGNS STABLE, PT A/O X4, DENIES ANY NEEDS AT THIS TIME. CALL LIGHT IN REACH, NAD NOTED, WILL CONTINUE TO MONITOR.
--- NOTE | 2019-10-03 20:24 | NUR ---
EVENING ROUNDS COMPLETED. VSS WITH BP 100/49, WILL CTM. NO S/S OF DISTRESS. PT REFUSED MUCINEX AND TESSALON, STATES "IT'S THE WORST MEDICATION EVER," EVEN THOUGH PT HAS OCCASIONAL EPISODES OF COUGHS. IV ROCEPHIN INFUSING. PT DENIES ANY FURTHER NEEDS AT THIS TIME. WILL CPOC. CL WITHIN REACH, BED IN LOW, SR UP X2.
[2019-10-04 00:23] VITALS: BP 103/61
[2019-10-04 06:05] VITALS: BP 95/63
[2019-10-04 06:10] LABS: BASOPHILS 0 % (0-2); EOSINOPHILS 0.1 % (0-7); HEMATOCRIT 37.2 % (36.0-48.0); HEMOGLOBIN 11.8 g/dL (12-16); IMMATURE GRANULOCYTES 0.2 % (0-5); LYMPHOCYTES 12.3 % (15-50); MCH 32.1 pg (26.0-34.0); MCHC 31.7 g/dL (31.0-37.0); MCV 101.1 fL (80.0-100.0); MEAN PLATELET VOLUME 8.5 fL (7.4-10.4); MONOCYTES 5.8 % (2-11); NEUTROPHILS 81.6 % (40-80); PLATELET COUNT 311 10x3/uL (130-400); RBC 3.68 10x6/uL (4.00-5.40)
[2019-10-04 06:38] LABS: WBC 11.3 10x3/uL (4.8-10.8)
[2019-10-04 06:47] LABS: ALKALINE PHOSPHATASE 62 U/L (46-116); ALT (SGPT) 18 U/L (10-68); BILIRUBIN - TOTAL 0.15 mg/dL (0.2-1.3); CALC OSMOLALITY 284 mosm/kg (275-300); CALCIUM 8.2 mg/dL (8.5-10.1); CARBON DIOXIDE 30.6 mmol/L (21.0-32.0); CHLORIDE - SERUM 106 mmol/L (98-107); CREATININE - SERUM 0.7 mg/dL (0.6-1.3); GLUCOSE 86 mg/dL (74-106); PROTEIN - SERUM 5.6 g/dL (6.4-8.2); SODIUM 142 mmol/L (136-145); UREA NITROGEN 20 mg/dL (7-18); eGFR NON AFRICAN AMERICAN 88 mL/min (90-120)
[2019-10-04 07:23] VITALS: BP 113/61
--- NOTE | 2019-10-04 08:28 | NUR ---
AM MEDS GIVEN AT THIS TIME. PT UP TO CHAIR. A/O X4, RESP EVEN AND NONLABORED ON RA. RT WRIST IV SL. PT DENIES ANY NEEDS AT THIS TIME. CALL LIGHT IN REACH, NAD NOTED, WILL CONTINUE TO MONITOR.
[2019-10-04] MEDS ORDERED: OMNICEF300 MG PO (10:03)
[2019-10-04] MEDS ORDERED: PROTONIX40 MG PO (10:03)
[2019-10-04] MEDS ORDERED: STERAPRED DS 1010 MG PO (10:03)
[2019-10-04 12:03] VITALS: BP 101/54
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
--- NOTE | 2019-10-04 13:14 | NUR ---
PROVIDED VERBAL AND WRITTEN DISCHARGE TEACHING TO PT, WHO VERBALIZED UNDERSTANDING REGARDING TEACHING. D/C RT WRIST IV WITH CATHETER TIP INTACT. PT WAITING ON RIDE, WILL CALL WHEN READY FOR WHEELCHAIR.
--- NOTE | 2019-10-04 13:28 | NUR ---
PT LEFT UNIT VIA WHEELCHAIR, WITH ALL BELONGINGS, ACCOMPANIED BY LATHE SETUP OPERATOR, NAD NOTED.
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
== END 2019-10-04 13:35 | disposition home or self-care (01) | DRG 189 ==
LOC: D.ER 10:14 → D.M3 11:26
PROVIDERS: Emergency Medicine; Family Medicine; Internal Medicine Gastroenterology; Internal Medicine Nephrology; ADMIT Family Medicine; ATTEND Family Medicine
PROC: 0D758ZZ Dilation of Esophagus, Via Natural or Artificial Opening Endoscopic (ICD-10-PCS; 2019-10-03)
PROC: 0DB68ZX Excision of Stomach, Via Natural or Artificial Opening Endoscopic, Diagnostic (ICD-10-PCS; principal; 2019-10-03 15:45)
DX: J96.21 Acute and chronic respiratory failure with hypoxia (principal); J44.1 Chronic obstructive pulmonary disease with (acute) exacerbation; N17.9 Acute kidney failure, unspecified; K21.9 Gastro-esophageal reflux disease without esophagitis; N95.9 Unspecified menopausal and perimenopausal disorder; J40 Bronchitis, not specified as acute or chronic; M41.9 Scoliosis, unspecified; K22.2 Esophageal obstruction; K44.9 Diaphragmatic hernia without obstruction or gangrene; Z87.891 Personal history of nicotine dependence

== ENCOUNTER 2021-01-10 11:43 | Inpatient (IN) | payer MEDICARE, OTHER ==
[~2021-01-10] VITALS: Ht 165.1 cm; Wt 65.8 kg
[~2021-01-10 11:43] MED LIST changes: +PROTONIX40 MG PO; +TRELEGY ELLIPT1 EACH INH
[2021-01-10 12:36] LABS: BASOPHILS 0.8 % (0-2); EOSINOPHILS 17.7 % (0-7); HEMOGLOBIN 14.3 g/dL (12-16); IMMATURE GRANULOCYTES 0.2 % (0-5); LYMPHOCYTE ABS# 1.52 10x3/uL (1.18-3.74); LYMPHOCYTES 29.5 % (15-50); MCH 33.3 pg (26.0-34.0); MCHC 32.5 g/dL (31.0-37.0); MCV 102.3 fL (80.0-100.0); MEAN PLATELET VOLUME 9.1 fL (7.4-10.4); MONOCYTES 8.2 % (2-11); NEUTROPHIL ABS# 2.25 10x3/uL (1.56-6.13); NEUTROPHILS 43.6 % (40-80); PLATELET COUNT 267 10x3/uL (130-400); RDW 13.2 % (11.5-14.5); WBC 5.2 10x3/uL (4.8-10.8)
[2021-01-10 12:43] LABS: CALC OSMOLALITY 282 mosm/kg (275-300); CALCIUM 8.7 mg/dL (8.5-10.1); CARBON DIOXIDE 31.5 mmol/L (21.0-32.0); CHLORIDE - SERUM 106 mmol/L (98-107); CREATININE - SERUM 0.7 mg/dL (0.6-1.3); GLUCOSE 94 mg/dL (74-106); SODIUM 142 mmol/L (136-145); UREA NITROGEN 12 mg/dL (7-18); eGFR NON AFRICAN AMERICAN 88 mL/min (90-120)
[2021-01-10 12:48] LABS: PROTIME 12.2 SECONDS (11.6-15.0)
[2021-01-10 12:49] LABS: ALBUMIN 3.5 g/dL (3.4-5.0); ALKALINE PHOSPHATASE 100 U/L (30-120); ALT (SGPT) 29 U/L (10-68); BILIRUBIN - TOTAL 0.26 mg/dL (0.2-1.3); PROTEIN - SERUM 6.5 g/dL (6.4-8.2)
[2021-01-10 16:44] VITALS: BP 115/68; BMI 24.1
[2021-01-10 20:35] VITALS: BP 103/61
--- NOTE | 2021-01-11 00:12 | NUR ---
I have reviewed this patient and I concur with the Shift Assessment completed by the Licensed Practical Nurse today this shift.
[2021-01-11 01:01] VITALS: BP 98/56
[2021-01-11 03:38] LABS: BILIRUBIN NEGATIVE (NEGATIVE); KETONE NEGATIVE (NEGATIVE); NITRITE NEGATIVE (NEGATIVE); UROBILINOGEN NORMAL mg/dL (< 2)
[2021-01-11 05:53] VITALS: BP 110/64
[2021-01-11 07:12] LABS: BASOPHILS 0.1 % (0-2); EOSINOPHILS 0.1 % (0-7); HEMATOCRIT 38.9 % (36.0-48.0); HEMOGLOBIN 12.6 g/dL (12-16); IMMATURE GRANULOCYTES 0.1 % (0-5); LYMPHOCYTE ABS# 1.11 10x3/uL (1.18-3.74); LYMPHOCYTES 13.4 % (15-50); MCH 33.1 pg (26.0-34.0); MCHC 32.4 g/dL (31.0-37.0); MCV 102.1 fL (80.0-100.0); MEAN PLATELET VOLUME 9.5 fL (7.4-10.4); MONOCYTES 7.5 % (2-11); NEUTROPHIL ABS# 6.51 10x3/uL (1.56-6.13); NEUTROPHILS 78.8 % (40-80); PLATELET COUNT 272 10x3/uL (130-400); RBC 3.81 10x6/uL (4.00-5.40); RDW 13.1 % (11.5-14.5)
[2021-01-11 07:18] LABS: WBC 8.3 10x3/uL (4.8-10.8)
[2021-01-11 07:39] LABS: ALKALINE PHOSPHATASE 83 U/L (30-120); ALT (SGPT) 23 U/L (10-68); CALCIUM 8.2 mg/dL (8.5-10.1); CARBON DIOXIDE 30.4 mmol/L (21.0-32.0); CHLORIDE - SERUM 108 mmol/L (98-107); CREATININE - SERUM 0.6 mg/dL (0.6-1.3); GLUCOSE 91 mg/dL (74-106); POTASSIUM - SERUM 4.5 mmol/L (3.5-5.1); PROTEIN - SERUM 5.6 g/dL (6.4-8.2); SODIUM 142 mmol/L (136-145); eGFR NON AFRICAN AMERICAN > 90 mL/min (90-120)
--- NOTE | 2021-01-11 07:39 | NUR ---
RECIEVED BEDSIDE REPORT. PATIENT UP AD TODD TO SINK TO BRUSH TEETH. DENIES FURTHER NEEDS AT THIS TIME. BED LOW POSITION, CALL LIGHT IN REACH. WILL CONTINUE TO MONITOR.
[2021-01-11 07:40] LABS: CALC OSMOLALITY 283 mosm/kg (275-300); UREA NITROGEN 16 mg/dL (7-18)
[2021-01-11 08:52] VITALS: BP 109/67
[2021-01-11 11:45] VITALS: BP 94/50
[2021-01-11 12:36] VITALS: Ht 165.1 cm; Wt 65.8 kg
--- NOTE | 2021-01-11 15:40 | NUR ---
PATIENT REQUESTING SHOWER. TECH ASSISTED WITH GATHERING NEEDED SUPPLIES, IV WRAPPED. WILL CONTINUE TO MONITOR.
[2021-01-11 16:50] VITALS: BP 107/58
--- NOTE | 2021-01-12 07:38 | NUR ---
RECIEVED BEDSIDE REPORT. IN BED RESTING AFTER BREATHING TREATMENT. BED LOW POSITION, CALL LIGHT IN REACH. WILL CONTINUE TO MONITOR.
[2021-01-12 10:56] VITALS: BP 113/62
[2021-01-12 14:36] VITALS: BP 101/57
[2021-01-12 17:43] VITALS: BP 103/60
[2021-01-13 08:52] VITALS: BP 116/69
--- NOTE | 2021-01-13 09:15 | NUR ---
PT SITTING UP IN BED WATCHING TV. O2 @ 2L NC IN PLACE. SALINE LOC TO LEFT HAND. SITE WIITHOUT REDNESS OR EDEMA. PT DENIES PAIN AT THIS TIME. DISCUSSED USE OF SCD'S AT THIS TIME. PT REFUSES USE OF SCD'S. PROVIDED EDUCATION AND STRESSING IMPORTANCE OF TO ASSIST IN PREVENTION OF BLOOD CLOTS. PT VOICES UNDERSTANDING AND CONTINUES TO DENY WISHES FOR SCD'S. PT IS ON LOVENOX FOR DVT PRECAUTION. PT DENIES FURTHER NEEDS AT THIS TIME. CL WITHIN REACH. ENCOURAGED TO CALL WITH NEEDS. CONTINUE POC
[2021-01-13 11:15] LABS: BASOPHILS 0 % (0-2); EOSINOPHILS 0 % (0-7); HEMATOCRIT 40.2 % (36.0-48.0); HEMOGLOBIN 12.9 g/dL (12-16); IMMATURE GRANULOCYTES 0.3 % (0-5); LYMPHOCYTE ABS# 0.48 10x3/uL (1.18-3.74); LYMPHOCYTES 3.9 % (15-50); MCH 32.9 pg (26.0-34.0); MCHC 32.1 g/dL (31.0-37.0); MCV 102.6 fL (80.0-100.0); MEAN PLATELET VOLUME 9.3 fL (7.4-10.4); MONOCYTES 2.7 % (2-11); NEUTROPHIL ABS# 11.53 10x3/uL (1.56-6.13); NEUTROPHILS 93.1 % (40-80); PLATELET COUNT 301 10x3/uL (130-400); RBC 3.92 10x6/uL (4.00-5.40); RDW 13.6 % (11.5-14.5); WBC 12.4 10x3/uL (4.8-10.8)
[2021-01-13 11:29] LABS: ALBUMIN 3.2 g/dL (3.4-5.0); ANION GAP 12.7 mmol/L (8-16); BILIRUBIN - TOTAL 0.09 mg/dL (0.2-1.3); CALCIUM 8.7 mg/dL (8.5-10.1); POTASSIUM - SERUM 3.7 mmol/L (3.5-5.1); PROTEIN - SERUM 6.2 g/dL (6.4-8.2)
[2021-01-13 12:48] VITALS: BP 104/55
[2021-01-13 16:51] VITALS: BP 103/58
[2021-01-13 20:00] VITALS: BP 107/64
[2021-01-13 23:48] VITALS: BP 124/68
--- NOTE | 2021-01-14 01:33 | NUR ---
PT REFUSED TO WEAR BIPAP STATES CANNOT TOLERATE
[2021-01-14 04:00] VITALS: BP 104/62
--- NOTE | 2021-01-14 06:41 | NUR ---
PATIENT HAD PAIN MNAGED WITH THE PRESCRIBED TYLENOL, SHE APPEARED TO REST WELL THROUGH THE NIGHT, SHE IS CURRENTLY RESTING IN BED.
[2021-01-14 07:13] LABS: BASOPHILS 0 % (0-2); EOSINOPHILS 0 % (0-7); HEMATOCRIT 38.7 % (36.0-48.0); HEMOGLOBIN 12.2 g/dL (12-16); IMMATURE GRANULOCYTES 0.2 % (0-5); LYMPHOCYTE ABS# 0.78 10x3/uL (1.18-3.74); LYMPHOCYTES 8.2 % (15-50); MCH 32.5 pg (26.0-34.0); MCHC 31.5 g/dL (31.0-37.0); MCV 103.2 fL (80.0-100.0); MEAN PLATELET VOLUME 9.7 fL (7.4-10.4); MONOCYTES 5.5 % (2-11); NEUTROPHIL ABS# 8.17 10x3/uL (1.56-6.13); NEUTROPHILS 86.1 % (40-80); PLATELET COUNT 293 10x3/uL (130-400); RBC 3.75 10x6/uL (4.00-5.40); RDW 13.8 % (11.5-14.5); WBC 9.5 10x3/uL (4.8-10.8)
[2021-01-14 07:41] LABS: ALKALINE PHOSPHATASE 71 U/L (30-120); ALT (SGPT) 24 U/L (10-68); CALC OSMOLALITY 289 mosm/kg (275-300); CALCIUM 8.2 mg/dL (8.5-10.1); CARBON DIOXIDE 32.4 mmol/L (21.0-32.0); CHLORIDE - SERUM 108 mmol/L (98-107); GLUCOSE 117 mg/dL (74-106); PROTEIN - SERUM 5.2 g/dL (6.4-8.2); SODIUM 144 mmol/L (136-145); UREA NITROGEN 18 mg/dL (7-18)
[2021-01-14 07:50] LABS: CREATININE - SERUM 0.6 mg/dL (0.6-1.3); POTASSIUM - SERUM 4.6 mmol/L (3.5-5.1); eGFR NON AFRICAN AMERICAN > 90 mL/min (90-120)
--- NOTE | 2021-01-14 08:18 | NUR ---
PT SITTING UP IN BED. O2 @ 2L NC IN PLACE. PT IMMEDIATELY QUESTIONS STAFF ABOUT DISCHARGE AND WHEN DR WILL MAKE ROUNDS TO DISCHARGE. INSTRUCTED PT THAT THERE WERE NO ORDERS FOR DISCHARGE AT THIS TIME, BUT THAT HER IV MEDICATIONS HAD BEEN CHANGED TO PO MEDS. PT VOICES UNDERSTANDING. SALINE LOC TO LEFT FOREARM. SITE WITHOUT REDNESS OR EDEMA. DENIES PAIN AT THIS TIME. CL WITHIN REACH. ENCOURAGED TO CALL WITH NEEDS. CONTINUE POC
[2021-01-14 09:03] VITALS: BP 117/68
[2021-01-14] MEDS ORDERED: FLUTICASONE PRO16 GM NASAL (12:10)
[2021-01-14] MEDS ORDERED: MUCINEX600 MG PO (12:10)
[2021-01-14] MEDS ORDERED: FLORAJEN DIGES1 EACH PO (12:10)
[2021-01-14] MEDS ORDERED: OMNICEF300 MG PO (12:11)
[2021-01-14] MEDS ORDERED: PREDNISONE10 MG PO (12:11)
[2021-01-14] MEDS ORDERED: LEVOFLOXACIN500 MG PO (12:11)
--- NOTE | 2021-01-14 12:15 | MORECARE ---
CASE MANAGEMENT DISCHARGE SUMMARY PATIENT: MADAI WARD UNIT: [id number] ADM DATE: 01/11/21 AGE: 70 : 50 SEX: F ROOM/BED: D.2229 AUTHOR: GENNARO,DOC PHYSICIAN: REFERRING PHYSICIAN: JULIO ALEXIS DO DATE OF SERVICE: 01/14/21 Case Management Discharge Planning Summary COMMENTS ENTERED DATE: 01/14/21 12:09 CT COMMENT TYPE: Discharge Planning REVIEWER: Mimi Muir CM met with patient at bedside after obtaining verbal consent. CM discussed availability / needs of home health, REHAB and medical equipment. PATIENT DENIES ANY DISCHARGE NEEDS.HAS HOME OXYGEN, PORTABLE AND NEBS WITH [facility]. PATIENT STATES PCP [facility]. PLANS TO DC TO HOME TODAY AND HER SON WILL PICK HER UP. IMM SIGNED AND PLACED ON CHART. DCP REVIEW SUMMARY ANTICIPATED D/C DATE: EXPECTED LOS : CASE STATUS: DCP Initiated INITIAL REVIEW: 01/10/2021 INITIAL REVIEWER: Mimi Muir FINAL DISCHARGE DISPOSITION: : FINAL REVIEWER: FINAL REVIEW DATE: DCP Focus Questions & Answers QUESTION: ANSWER : PATIENT: MADAI WARD ENCOUNTER: [id number] MEDICAL RECORD#: [id number] ADMISSION DATE: 01/11/2021 DISCHARGE DATE: ATTENDING MD: JULIO PINEDO : AGE: 70 MARITAL STATUS: W DC PLAN ID: [id number] FACILITY: [facility] PRINTED ON: 01/14/21 12:14 CT All edits/amendments must be made on the electronic document DICTATION DATE: 01/14/21 121 INSTRUCTOR PAINTING: DM 01/14/21 1214 RPT#: [id number] DC DATE: STATUS: ADM IN [facility] [address] [place] [address] END OF REPORT
--- NOTE | 2021-01-14 13:45 | NUR ---
PT PROVIDED WITH DISCHARGE INSTRUCTIONS WITH FOLLOW UP APPOINTMENTS WITH PHYSICIANS. DISCUSSED NEW PRESCRIPTIONS AND OLD PRESCRIPTIONS TO DISCONTINUE USE OF UPON RETURN HOME. SALINE LOC DISCONTINUED FROM LEFT FOREARM CATH INTACT. PT TAKE DOWN VIA W/C TO PRIVATE VEHICLE.
--- NOTE | 2021-01-15 10:22 | MORECARE ---
CASE MANAGEMENT DISCHARGE SUMMARY PATIENT: MADAI WARD UNIT: [id number] ADM DATE: 01/11/21 AGE: 70 : 50 SEX: F ROOM/BED: D.2229 AUTHOR: GENNARO,DOC PHYSICIAN: REFERRING PHYSICIAN: JULIO ALEXIS DO DATE OF SERVICE: 01/15/21 Case Management Discharge Planning Summary COMMENTS ENTERED DATE: 01/14/21 12:09 CT COMMENT TYPE: Discharge Planning REVIEWER: Mimi Muir CM met with patient at bedside after obtaining verbal consent. CM discussed availability / needs of home health, REHAB and medical equipment. PATIENT DENIES ANY DISCHARGE NEEDS.HAS HOME OXYGEN, PORTABLE AND NEBS WITH [facility]. PATIENT STATES PCP [facility]. PLANS TO DC TO HOME TODAY AND HER SON WILL PICK HER UP. IMM SIGNED AND PLACED ON CHART. DCP REVIEW SUMMARY ANTICIPATED D/C DATE: EXPECTED LOS : CASE STATUS: DCP Initiated INITIAL REVIEW: 01/10/2021 INITIAL REVIEWER: Mimi Muir FINAL DISCHARGE DISPOSITION: : FINAL REVIEWER: FINAL REVIEW DATE: DCP Focus Questions & Answers QUESTION: ANSWER : PATIENT: MADAI WARD ENCOUNTER: [id number] MEDICAL RECORD#: [id number] ADMISSION DATE: 01/11/2021 DISCHARGE DATE: 01/14/2021 ATTENDING MD: JULIO PINEDO : AGE: 70 MARITAL STATUS: W DC PLAN ID: [id number] FACILITY: [facility] PRINTED ON: 01/15/21 10:22 CT All edits/amendments must be made on the electronic document DICTATION DATE: 01/15/21 1022 MEDICAL INSTRUMENT CABLE FABRICATOR: DM 01/15/21 1022 RPT#: [id number] DC DATE:01/14/21 STATUS: DIS IN [facility] [address] [place] [address] END OF REPORT
== END 2021-01-14 14:00 | disposition home or self-care (01) | DRG 190 ==
LOC: D.ER 11:43 → D.MS 13:48 → OBSVTIME 13:48 → D.MS 13:48 → D.ER 15:21 → D.MS 01-11 11:03
PROVIDERS: Emergency Medicine; Family Medicine; ADMIT Family Medicine; ATTEND Family Medicine
DX: J44.1 Chronic obstructive pulmonary disease with (acute) exacerbation (principal); J96.21 Acute and chronic respiratory failure with hypoxia; K21.9 Gastro-esophageal reflux disease without esophagitis; M41.9 Scoliosis, unspecified; G89.29 Other chronic pain; J30.9 Allergic rhinitis, unspecified; F41.9 Anxiety disorder, unspecified; F32.9 Major depressive disorder, single episode, unspecified; M19.90 Unspecified osteoarthritis, unspecified site; I25.10 Atherosclerotic heart disease of native coronary artery without angina pectoris

== ENCOUNTER 2021-02-06 16:19 | Inpatient (IN) | payer MEDICARE, OTHER ==
[~2021-02-06] VITALS: Ht 165.1 cm; Wt 63.5 kg
[~2021-02-06 16:19] MED LIST changes: +FLORAJEN DIGES1 EACH PO; +FLUTICASONE PRO16 GM NASAL
--- NOTE | 2021-02-06 16:42 | NUR ---
RESPIRATORY IS AT BEDSIDE
[2021-02-06 16:51] LABS: BASOPHILS 1.4 % (0-2); EOSINOPHILS 12.8 % (0-7); HEMATOCRIT 40.6 % (36.0-48.0); HEMOGLOBIN 13.5 g/dL (12-16); LYMPHOCYTES 29.2 % (15-50); MCH 33.2 pg (26.0-34.0); MCHC 33.2 g/dL (31.0-37.0); MCV 99.9 fL (80.0-100.0); MEAN PLATELET VOLUME 6.5 fL (7.4-10.4); MONOCYTES 9.8 % (2-11); NEUTROPHILS 46.8 % (40-80); PLATELET COUNT 329 10x3/uL (130-400); RBC 4.06 10x6/uL (4.00-5.40); RDW 13.9 % (11.5-14.5); WBC 5.6 10x3/uL (4.8-10.8)
[2021-02-06 16:58] LABS: APTT 23.9 SECONDS (22.8-39.4); INR 1.02 (0.85-1.17); PROTIME 12.4 SECONDS (11.6-15.0)
[2021-02-06 17:09] LABS: CALC OSMOLALITY 285 mosm/kg (275-300); CARBON DIOXIDE 27.5 mmol/L (21.0-32.0); CHLORIDE - SERUM 106 mmol/L (98-107); CREATININE - SERUM 0.8 mg/dL (0.6-1.3); GLUCOSE 106 mg/dL (74-106); POTASSIUM - SERUM 4.2 mmol/L (3.5-5.1); SODIUM 143 mmol/L (136-145); UREA NITROGEN 14 mg/dL (7-18); eGFR NON AFRICAN AMERICAN 75 mL/min (90-120)
[2021-02-06 17:22] LABS: ALBUMIN 3.6 g/dL (3.4-5.0); ALKALINE PHOSPHATASE 81 U/L (30-120); ALT (SGPT) 18 U/L (10-68); CKMB 1.4 U/L (0.0-3.6); CREATINE KINASE 35 UL (21-215); PRO BNP 2847 pg/mL (0-125); PROTEIN - SERUM 6.3 g/dL (6.4-8.2); TROPONIN-I 0.037 ng/mL (0.000-0.060)
--- NOTE | 2021-02-06 17:53 | NUR ---
PT SITTING UP STRAIGHT ASKING FOR A BREATHING TREATMENT. O2 SAT 96% ON 2L. PT REPORTS GETTING OUT OF BED TO GET A PAPER TOWEL. PT STATES SHE IS NOT FEELING RIGHT. CALLED RESPIRATORY FOR NEBULIZER BREATHING TREATMENT.
[2021-02-06 19:15] VITALS: BP 127/67
--- NOTE | 2021-02-06 19:26 | NUR ---
BEDSIDE REPORT GIVEN TO BILLY GARCIA
[2021-02-07 00:17] VITALS: BMI 23.3
[2021-02-07 04:12] VITALS: BP 100/66
[2021-02-07 05:52] LABS: BASOPHILS 0.5 % (0-2); EOSINOPHILS 0.1 % (0-7); HEMATOCRIT 41.7 % (36.0-48.0); HEMOGLOBIN 13.9 g/dL (12-16); LYMPHOCYTES 6.6 % (15-50); MCH 33.5 pg (26.0-34.0); MCHC 33.2 g/dL (31.0-37.0); MCV 100.8 fL (80.0-100.0); MONOCYTES 0.7 % (2-11); NEUTROPHILS 92.1 % (40-80); PLATELET COUNT 328 10x3/uL (130-400); RBC 4.14 10x6/uL (4.00-5.40); RDW 13.8 % (11.5-14.5); WBC 4.3 10x3/uL (4.8-10.8)
--- NOTE | 2021-02-07 06:00 | NUR ---
RR EVEN AND UNLABORED THIS AM, PT RESTED WELL. APPEARS TO HAVE LESS DIFFICULTY THIS AM. C/O HEADACHE AND NAUSEA EARLY IN THE NIGHT BUT HAS RESOLVED THIS AM. DENIES NEEDS. CL IN REACH, WILL CTM.
[2021-02-07 06:10] LABS: ALBUMIN 3.6 g/dL (3.4-5.0); ANION GAP 9.5 mmol/L (8-16); BILIRUBIN - TOTAL 0.23 mg/dL (0.2-1.3); CALCIUM 8.6 mg/dL (8.5-10.1); CREATININE - SERUM 0.9 mg/dL (0.6-1.3); MAGNESIUM - SERUM 2.5 mg/dL (1.8-2.4); POTASSIUM - SERUM 4.5 mmol/L (3.5-5.1); PROTEIN - SERUM 6.6 g/dL (6.4-8.2)
[2021-02-07 07:43] LABS: BILIRUBIN NEGATIVE (NEGATIVE); KETONE SMALL mg/dL (NEGATIVE); NITRITE NEGATIVE (NEGATIVE); UROBILINOGEN NORMAL mg/dL (< 2)
[2021-02-07 07:54] VITALS: BP 104/62
[2021-02-07 10:58] VITALS: BP 102/64
[2021-02-07 13:04] VITALS: Ht 165.1 cm; Wt 63.5 kg
[2021-02-07 15:09] VITALS: BP 97/59
[2021-02-07 19:58] VITALS: BP 109/63
--- NOTE | 2021-02-07 23:05 | NUR ---
REPORT RECIEVED. PT A&O, UP IN BED READING. NO S/S OF DISTRESS OBSERVED. RR EVEN & UNLABORED ON 2L. SR 91 ON TELE. IV TO L WRIST SL, PATENT, SWAB CAPS IN USE. DRESSING C/D/I. NO S/S OF INFILTRATION OBSERVED. ZOFRAN ADMINISTERED FOR NAUSEA. BED LOCKED AND LOWERED, CL IN REACH. ASSESSMENT COMPLETE. WILL CONT POC.
[2021-02-07 23:20] VITALS: BP 93/61
[2021-02-08 03:24] VITALS: BP 107/60
[2021-02-08 06:40] LABS: BASOPHILS 0.2 % (0-2); EOSINOPHILS 0 % (0-7); HEMATOCRIT 37.5 % (36.0-48.0); HEMOGLOBIN 12.4 g/dL (12-16); LYMPHOCYTES 3.8 % (15-50); MCH 33.1 pg (26.0-34.0); MCV 100.3 fL (80.0-100.0); MEAN PLATELET VOLUME 7.1 fL (7.4-10.4); MONOCYTES 4.6 % (2-11); NEUTROPHILS 91.4 % (40-80); PLATELET COUNT 340 10x3/uL (130-400); RBC 3.74 10x6/uL (4.00-5.40); RDW 13.9 % (11.5-14.5)
[2021-02-08 06:44] LABS: WBC 15.1 10x3/uL (4.8-10.8)
--- NOTE | 2021-02-08 07:06 | NUR ---
RECIEVED BEDSIDE REPORT. RESP EVEN AND UNLABORED, PATIENT SITTING UP IN BED READING. NO VERBALIZED PAIN OR DISTRESS.
[2021-02-08 07:14] LABS: ALBUMIN 3.3 g/dL (3.4-5.0); ALKALINE PHOSPHATASE 68 U/L (30-120); ALT (SGPT) 16 U/L (10-68); BILIRUBIN - TOTAL 0.23 mg/dL (0.2-1.3); CALCIUM 8.7 mg/dL (8.5-10.1); CARBON DIOXIDE 31.2 mmol/L (21.0-32.0); CHLORIDE - SERUM 103 mmol/L (98-107); CREATININE - SERUM 0.7 mg/dL (0.6-1.3); GLUCOSE 106 mg/dL (74-106); MAGNESIUM - SERUM 2.5 mg/dL (1.8-2.4); POTASSIUM - SERUM 4.8 mmol/L (3.5-5.1); PROTEIN - SERUM 6.1 g/dL (6.4-8.2); SODIUM 139 mmol/L (136-145); eGFR NON AFRICAN AMERICAN 88 mL/min (90-120)
[2021-02-08 07:55] LABS: CALC OSMOLALITY 280 mosm/kg (275-300); UREA NITROGEN 20 mg/dL (7-18)
[2021-02-08 08:25] VITALS: BP 101/52
--- NOTE | 2021-02-08 09:00 | NUR ---
PATIENT SITTING UP IN BED. STATES SHE WANTS TO GO HOME. NO CURRENT PAIN OR DISTRESS NOTED. RESP EVEN AND UNLABORED. LUNG SOUNDS WITH SLIGHT WHEEZING IN BASES. O2 IN USE ON 2L NASAL CANNULA. HEART SOUNDS REG RATE AND RYTHYM.
--- NOTE | 2021-02-08 13:09 | NUR ---
I have reviewed this patient and I concur with the Shift Assessment completed by the Licensed Practical Nurse today this shift.
[2021-02-08 15:56] VITALS: BP 101/52
--- NOTE | 2021-02-08 19:37 | NUR ---
RECEIVED REPORT, WILL ASSUME CARE OF PT, PT ASK IF SHE COULD TAKE HEARTMONITOR OFF, TOLD HER IT WAS ORDERED, SO SHE IS REFUSING TELEMTRY AT THIS TIME, BED IS LOW, SRX2, CALL LIGHT IN REACH, WILL CONTINUE PLAN OF CARE
[2021-02-08 20:33] VITALS: BP 123/61
[2021-02-09 00:34] VITALS: BP 112/56
[2021-02-09 04:49] VITALS: BP 102/63
[2021-02-09 06:03] LABS: EOSINOPHILS 0 % (0-7); HEMATOCRIT 36.9 % (36.0-48.0); HEMOGLOBIN 12.3 g/dL (12-16); LYMPHOCYTES 3.6 % (15-50); MCH 33.3 pg (26.0-34.0); MCHC 33.3 g/dL (31.0-37.0); MCV 99.8 fL (80.0-100.0); MEAN PLATELET VOLUME 6.8 fL (7.4-10.4); MONOCYTES 2.5 % (2-11); NEUTROPHILS 92.9 % (40-80); PLATELET COUNT 325 10x3/uL (130-400); RDW 14.1 % (11.5-14.5); WBC 18.3 10x3/uL (4.8-10.8)
[2021-02-09 06:36] LABS: ALBUMIN 3.2 g/dL (3.4-5.0); ALKALINE PHOSPHATASE 66 U/L (30-120); ALT (SGPT) 18 U/L (10-68); BILIRUBIN - TOTAL 0.09 mg/dL (0.2-1.3); CALC OSMOLALITY 278 mosm/kg (275-300); CALCIUM 8.5 mg/dL (8.5-10.1); CHLORIDE - SERUM 104 mmol/L (98-107); CREATININE - SERUM 0.7 mg/dL (0.6-1.3); GLUCOSE 126 mg/dL (74-106); MAGNESIUM - SERUM 2.3 mg/dL (1.8-2.4); POTASSIUM - SERUM 4.5 mmol/L (3.5-5.1); SODIUM 137 mmol/L (136-145); UREA NITROGEN 20 mg/dL (7-18); eGFR NON AFRICAN AMERICAN 88 mL/min (90-120)
--- NOTE | 2021-02-09 07:20 | NUR ---
RECIEVE REPORT. ALERT AND ORIENTED X4. SITTING UP IN BED. DENIES ANY NEEDS. EXPRESSES BEING READY TO GO HOME. CONTINUE PLAN OF CARE AND SAFETY PRECAUTIONS.
[2021-02-09 08:00] VITALS: BP 112/64
[2021-02-09] MEDS ORDERED: STERAPRED 5MG 65 M1 PO (12:24)
--- NOTE | 2021-02-09 13:39 | MORECARE ---
CASE MANAGEMENT DISCHARGE SUMMARY PATIENT: MADAI WARD UNIT: [id number] ADM DATE: 02/07/21 AGE: 70 : 50 SEX: F ROOM/BED: [facility] AUTHOR: GENNARO,DOC PHYSICIAN: REFERRING PHYSICIAN: ALPA RUTHERFORD MD DATE OF SERVICE: 02/09/21 Case Management Discharge Planning Summary DCP REVIEW SUMMARY ANTICIPATED D/C DATE: 02/09/2021 EXPECTED LOS : 2 CASE STATUS: DCP Initiated INITIAL REVIEW: 02/06/2021 INITIAL REVIEWER: Abilio Ruelas FINAL DISCHARGE DISPOSITION: : FINAL REVIEWER: FINAL REVIEW DATE: DCP Focus Questions & Answers QUESTION: ANSWER : PATIENT: MADAI WARD ENCOUNTER: [id number] MEDICAL RECORD#: [id number] ADMISSION DATE: 02/07/2021 DISCHARGE DATE: ATTENDING MD: ALPA CASTELLON : AGE: 70 MARITAL STATUS: W DC PLAN ID: [id number] FACILITY: [facility] PRINTED ON: 02/09/21 13:38 CT All edits/amendments must be made on the electronic document DICTATION DATE: 02/09/21 133 COMPLIANCE TESTER: DM 02/09/21 1338 RPT#: [id number] DC DATE: STATUS: ADM IN [facility] [address] [place] [address] END OF REPORT
--- NOTE | 2021-02-09 13:50 | MORECARE ---
CASE MANAGEMENT DISCHARGE SUMMARY PATIENT: MADAI WARD UNIT: [id number] ADM DATE: 02/07/21 AGE: 70 : 50 SEX: F ROOM/BED: D.1624 AUTHOR: CHENCHO BURDICK PHYSICIAN: REFERRING PHYSICIAN: ALPA RUTHERFORD MD DATE OF SERVICE: 02/09/21 Case Management Discharge Planning Summary DCP REVIEW SUMMARY ANTICIPATED D/C DATE: 02/09/2021 EXPECTED LOS : 2 CASE STATUS: DCP Initiated INITIAL REVIEW: 02/06/2021 INITIAL REVIEWER: Abilio Ruelas FINAL DISCHARGE DISPOSITION: : FINAL REVIEWER: FINAL REVIEW DATE: DCP Focus Questions & Answers DCP Evaluation QUESTION: ANSWER Patient and/or caregiver agree upon recommended discharge plan? : Yes Family / Caregiver's ability to cope with chronic illness: : a. Adequate (ability to meet patient's medical needs, ensures patient attends medical appts.) Patient's current cognitive status: : *Oriented to person, place, situation, time and present Patient's ability to cope with chronic illness : d. No chronic illness Patient gives permission to discuss discharge plans with: (name, relationship and number) : chandaerDominick, Does the patient have the ability to pay for or attain post discharge needs / services? : Yes Functional screen assessment: : Basic needs can adequately be met by self Family / Caregiver's ability to cope with chronic illness: : a. Adequate (ability to meet patient's medical needs, ensures patient attends medical appts.) Physical Status: : Independent with ADL's Equipment needed for post hospitalization: : None Is there a likelihood that the patient will require additional services to return to the preadmission environment? : No Living Arrangements: : Home with Extended Family Patient with capacity for self-care or can be cared for in same environment as prior to hospitalization? : Yes Baseline cognitive status: : *Oriented to person, place, situation, time and present Physical environment modification needed / anticipated for discharge: : No Medication Management: : Patient states can read and understand medication labels Pharmacy name(s): : [facility] Does Patient have transportation to get home and to follow-up medical appointments when discharged from the hospital? : Yes Would patient like to participate in any Care Coordination programs (if applicable): : Not applicable Does the patient have electricity at home? : Yes Does the patient have running water in their house? : Yes Equipment in use: : Nebulizer Other Equipment comments: : Oxygen Supplies Equipment agency name and contact information: : [facility] screen: : No mental health history DCP Re-evaluation QUESTION: ANSWER Would patient like to participate in any Care Coordination programs (if applicable): : Not applicable PATIENT: MADAI WARD ENCOUNTER: [id number] MEDICAL RECORD#: [id number] ADMISSION DATE: 02/07/2021 DISCHARGE DATE: ATTENDING MD: ALPA CASTELLON : AGE: 70 MARITAL STATUS: W DC PLAN ID: [id number] FACILITY: [facility] PRINTED ON: 02/09/21 13:50 CT All edits/amendments must be made on the electronic document DICTATION DATE: 02/09/211349 MOTH PROOFER: EVA 02/09/21 1350 RPT#: [id number] DC DATE: STATUS: ADM IN [facility] [address] [place] [address] END OF REPORT
--- NOTE | 2021-02-09 14:02 | MORECARE ---
CASE MANAGEMENT DISCHARGE SUMMARY PATIENT: MADAI WARD UNIT: [id number] ADM DATE: 02/07/21 AGE: 70 : 50 SEX: F ROOM/BED: D.7809 AUTHOR: CHENCHO BURDICK PHYSICIAN: REFERRING PHYSICIAN: ALPA RUTHERFORD MD DATE OF SERVICE: 02/09/21 Case Management Discharge Planning Summary COMMENTS ENTERED DATE: 02/09/21 13:50 CT COMMENT TYPE: Discharge Planning REVIEWER: Abilio Ruelas CM met with patient to complete DC plan and to evaluate needs. Patient stated that she readmitted because difficulty breathing. Patient stated that she was able to obtain her medications after last discharge and was able to keep her follow up appointments with both her wireworker and primary care physician. Patient stated that she followed the dc instructions given to her. It appears that this readmission was due to Exacerbation of chronic condition. Patient lives independently alone but has strong support. Patient identified her brother, Dominick Galindo, as her person to identify. Patient stated that her home is safe and has electricity and running water. Patient stated that the home has 4 steps to enter and she is able to manage the steps without difficulty. Patient stated that she has no problems paying for medications and she fills her medications at [facility] in [place]. Patient stated that her primary care physicians are with [facility] in [facility]. At discharge, the patient plans to return home and feels this is a safe discharge. CM discussed availability of home health, rehab services, and medical equipment. Patient declined HHS, SNF, IPR, and DME. Patient stated that she is able to move about her home without difficulty. Patient stated that she has Oxygen supplies through [facility] [place]. Patient voiced no other needs at this time and is satisfied with DC plan. Transportation provider at discharge will be with her brother, Dominick. DC IMM delivered, explained, signed by the patient, and placed in chart. Signed form also left with the patient. CM will continue to follow and will assist as needed with dc plans/needs. DCP REVIEW SUMMARY ANTICIPATED D/C DATE: 02/09/2021 EXPECTED LOS : 2 CASE STATUS: DCP Initiated INITIAL REVIEW: 02/06/2021 INITIAL REVIEWER: Abilio Ruelas FINAL DISCHARGE DISPOSITION: : FINAL REVIEWER: FINAL REVIEW DATE: DCP Focus Questions & Answers DCP Evaluation QUESTION: ANSWER Patient and/or caregiver agree upon recommended discharge plan? : Yes Family / Caregiver's ability to cope with chronic illness: : a. Adequate (ability to meet patient's medical needs, ensures patient attends medical appts.) Patient's current cognitive status: : *Oriented to person, place, situation, time and present Patient's ability to cope with chronic illness : d. No chronic illness Patient gives permission to discuss discharge plans with: (name, relationship and number) : brotherDominick, Does the patient have the ability to pay for or attain post discharge needs / services? : Yes Functional screen assessment: : Basic needs can adequately be met by self Family / Caregiver's ability to cope with chronic illness: : a. Adequate (ability to meet patient's medical needs, ensures patient attends medical appts.) Physical Status: : Independent with ADL's Equipment needed for post hospitalization: : None Is there a likelihood that the patient will require additional services to return to the preadmission environment? : No Living Arrangements: : Home Alone with Support Patient with capacity for self-care or can be cared for in same environment as prior to hospitalization? : Yes Baseline cognitive status: : *Oriented to person, place, situation, time and present Physical environment modification needed / anticipated for discharge: : No Medication Management: : Patient states can read and understand medication labels Pharmacy name(s): : [facility] Does Patient have transportation to get home and to follow-up medical appointments when discharged from the hospital? : Yes Would patient like to participate in any Care Coordination programs (if applicable): : Not applicable Does the patient have electricity at home? : Yes Does the patient have running water in their house? : Yes Equipment in use: : Nebulizer Other Equipment comments: : Oxygen Supplies Equipment agency name and contact information: : [facility] screen: : No mental health history DCP Re-evaluation QUESTION: ANSWER Would patient like to participate in any Care Coordination programs (if applicable): : Not applicable PATIENT: MADAI WARD ENCOUNTER: [id number] MEDICAL RECORD#: [id number] ADMISSION DATE: 02/07/2021 DISCHARGE DATE: ATTENDING MD: ALPA CASTELLON : AGE: 70 MARITAL STATUS: W DC PLAN ID: [id number] FACILITY: [facility] PRINTED ON: 02/09/21 14:01 CT All edits/amendments must be made on the electronic document DICTATION DATE: 02/09/211400 RADIOLOGY ORDERLY: EVA 02/09/211400 RPT#: [id number] DC DATE: STATUS: ADM IN [facility] [address] [place] [address] END OF REPORT
--- NOTE | 2021-02-09 14:40 | NUR ---
ALERT AND ORIENTED X4. SITTING UP IN BED. DC LT HAND IV TIP INTACT. DISCHARGE INSTRUCTIONS GIVEN VERBALLY AND WRITTEN. DISCHARGE PAPERS SIGNED ON CHART. ESCORT TO RIDE VIA WHEELCHAIR. REMAINS FREE FROM INJURY.
--- NOTE | 2021-02-09 14:45 | MORECARE ---
CASE MANAGEMENT DISCHARGE SUMMARY PATIENT: MADAI WARD UNIT: [id number] ADM DATE: 02/07/21 AGE: 70 : 50 SEX: F ROOM/BED: D.0381 AUTHOR: CHENCHO BURDICK PHYSICIAN: REFERRING PHYSICIAN: ALPA RUTHERFORD MD DATE OF SERVICE: 02/09/21 Case Management Discharge Planning Summary COMMENTS ENTERED DATE: 02/09/21 13:50 CT COMMENT TYPE: Discharge Planning REVIEWER: Abilio Ruelas CM met with patient to complete DC plan and to evaluate needs. Patient stated that she readmitted because difficulty breathing. Patient stated that she was able to obtain her medications after last discharge and was able to keep her follow up appointments with both her shipping and receiving associate and primary care physician. Patient stated that she followed the dc instructions given to her. It appears that this readmission was due to Exacerbation of chronic condition. Patient lives independently alone but has strong support. Patient identified her brother, Dominick Galindo, as her person to identify. Patient stated that her home is safe and has electricity and running water. Patient stated that the home has 4 steps to enter and she is able to manage the steps without difficulty. Patient stated that she has no problems paying for medications and she fills her medications at [facility] in [place]. Patient stated that her primary care physicians are with [facility] in [facility]. At discharge, the patient plans to return home and feels this is a safe discharge. CM discussed availability of home health, rehab services, and medical equipment. Patient declined HHS, SNF, IPR, and DME. Patient stated that she is able to move about her home without difficulty. Patient stated that she has Oxygen supplies through [facility]. Patient voiced no other needs at this time and is satisfied with DC plan. Transportation provider at discharge will be with her brother, Dominick. DC IMM delivered, explained, signed by the patient, and placed in chart. Signed form also left with the patient. CM will continue to follow and will assist as needed with dc plans/needs. DCP REVIEW SUMMARY ANTICIPATED D/C DATE: 02/09/2021 EXPECTED LOS : 2 CASE STATUS: DCP Initiated INITIAL REVIEW: 02/06/2021 INITIAL REVIEWER: Abilio Ruelas FINAL DISCHARGE DISPOSITION: : FINAL REVIEWER: FINAL REVIEW DATE: DCP Focus Questions & Answers DCP Evaluation QUESTION: ANSWER Patient and/or caregiver agree upon recommended discharge plan? : Yes Family / Caregiver's ability to cope with chronic illness: : a. Adequate (ability to meet patient's medical needs, ensures patient attends medical appts.) Patient's current cognitive status: : *Oriented to person, place, situation, time and present Patient's ability to cope with chronic illness : d. No chronic illness Patient gives permission to discuss discharge plans with: (name, relationship and number) : brotherDominick, Does the patient have the ability to pay for or attain post discharge needs / services? : Yes Functional screen assessment: : Basic needs can adequately be met by self Family / Caregiver's ability to cope with chronic illness: : a. Adequate (ability to meet patient's medical needs, ensures patient attends medical appts.) Physical Status: : Independent with ADL's Equipment needed for post hospitalization: : None Is there a likelihood that the patient will require additional services to return to the preadmission environment? : No Living Arrangements: : Home Alone with Support Patient with capacity for self-care or can be cared for in same environment as prior to hospitalization? : Yes Baseline cognitive status: : *Oriented to person, place, situation, time and present Physical environment modification needed / anticipated for discharge: : No Medication Management: : Patient states can read and understand medication labels Pharmacy name(s): : [facility] Does Patient have transportation to get home and to follow-up medical appointments when discharged from the hospital? : Yes Would patient like to participate in any Care Coordination programs (if applicable): : Not applicable Does the patient have electricity at home? : Yes Does the patient have running water in their house? : Yes Equipment in use: : Nebulizer Other Equipment comments: : Oxygen Supplies Equipment agency name and contact information: : [facility] screen: : No mental health history DCP Re-evaluation QUESTION: ANSWER Would patient like to participate in any Care Coordination programs (if applicable): : Not applicable PATIENT: MADAI WARD ENCOUNTER: [id number] MEDICAL RECORD#: [id number] ADMISSION DATE: 02/07/2021 DISCHARGE DATE: 02/09/2021 ATTENDING MD: ALPA CASTELLON : AGE: 70 MARITAL STATUS: W DC PLAN ID: [id number] FACILITY: [facility] PRINTED ON: 02/09/21 14:45 CT All edits/amendments must be made on the electronic document DICTATION DATE: 02/09/211444 INCINERATOR PLANT SUPERVISOR: EVA 02/09/211444 RPT#: [id number] DC DATE:02/09/21 STATUS: DIS IN [facility] [address] [place] [address] END OF REPORT
--- NOTE | 2021-02-09 14:50 | EC ---
PATIENT:MADAI WARD DATE OF SERVICE: 02/07/21 SEX: F MEDICAL RECORD: [id number] DATE OF : 50 LOCATION:D.M2 D.210 AGE OF PATIENT: 70 ADMISSION DATE: 02/07/21 REFERRING PHYSICIAN: INTERPRETING PHYSICIAN: KATHI GANNON MD ECHOCARDIOGRAM REPORT ECHO CHARGES 4 ECHO COMPLETE Date: 02/07/21 CLINICAL DIAGNOSIS: DYSPNEA ECHOCARDIOGRAPHIC MEASUREMENTS (adult normal given) AC root (d.<3.7cm) 2.2 cm LV Septum d (<1.2 cm> 0.8 cm Valve Excursion 1.3 cm LV Septum (systole) 1.3 cm Left Atria (s.<4.0cm> 2.5 cm LVPW d(<1.2cm) 1.1 cm RV (d.<2.3cm) 2.1 cm LVPW (sytole) 1.2 cm LV diastole(<5.6CM) 5.4 cm MV E-F(>70mm/sec) cm LV systole 4.2 cm LVOT Diameter 1.8 cm MV exc.(>10mm) 1.7 cm Est.ejection fraction (50-75%) % DOPPLER: LVIT cm/sec A 99 cm/sec E 65 cm/sec LA cm/sec RVSP 34 mmHg LVOT 147 cm/sec AOP1/2T m/s Asc. Ao 169 cm/sec RVOT cm/sec RA cm/sec PA cm/sec AV Gradient Peak 11.4 mmHg AV Mean 6.2 mmHg AV Area 2.2 cm MV Gradient Peak 3.3 mmHg MV Mean 1.7 mmHg MV Area cm COMMENTS: Stores Clerk: Jack VÁSQUEZ Manager Operations: [address] Dr. Gannon TAPE# Pericardial Effusion N DATE OF SERVICE: CLINICAL INDICATION: Dyspnea. INTERPRETATION: Normal left ventricular chamber size and contractile function with ejection fraction of 55% to 60%. FINDINGS: Left atrial chamber appears normal. Right atrium and right ventricular chamber size and function appears normal. Aortic valve appears normal. No aortic stenosis/regurgitation. Mitral valve appears normal. No ECHOCARDIOGRAM REPORT [id number] MADAI WARD mitral regurgitation. Tricuspid valve appears normal. Trace tricuspid regurgitation. Pulmonic valve appears normal. No pulmonary regurgitation. No pericardial effusion visualized. IMPRESSION: Normal left ventricular chamber size and contractile function with ejection fraction of 55% to 60%. TRANSINT:[id number] Voice Confirmation ID: [id number] DOCUMENT ID: [id number] KATHI GANNON MD at 1450 CC: [id number] DICTATION DATE: 02/08/211745 VALET: 02/08/211944 DIS IN 02/09/21 [facility] [address] [id number]
== END 2021-02-09 14:41 | disposition home or self-care (01) | DRG 189 ==
LOC: D.ER 16:19 → D.M2 19:37 → OBSVTIME 19:37 → D.M2 19:37
PROVIDERS: Emergency Medicine; ADMIT Family Medicine; ATTEND Family Medicine
DX: J96.21 Acute and chronic respiratory failure with hypoxia (principal); J44.1 Chronic obstructive pulmonary disease with (acute) exacerbation; K21.9 Gastro-esophageal reflux disease without esophagitis; M19.90 Unspecified osteoarthritis, unspecified site; I25.10 Atherosclerotic heart disease of native coronary artery without angina pectoris; K44.9 Diaphragmatic hernia without obstruction or gangrene; K22.2 Esophageal obstruction; J30.9 Allergic rhinitis, unspecified; M41.9 Scoliosis, unspecified; G89.29 Other chronic pain